=== PATIENT | female | born 1980 ===

== ENCOUNTER 2020-08-23 15:45 | Inpatient (IN) | payer BC ==
[~2020-08-23 15:45] MED LIST: Dexamethasone 4 MG Tab PO SCH
--- NOTE | 2020-08-23 15:52 | EDM.PDOC ---
<Malick Deluca - Last Filed: 08/23/20 20:17> ED HPI GENERAL MEDICAL PROBLEM - General Chief Complaint: Respiratory Problem Stated Complaint: CLINIC ARRIVAL Time Seen by Provider: 08/23/20 15:47 - Related Data Allergies Allergy/AdvReac Type Severity Reaction Status Date / Time No Known Allergies Allergy Verified 08/23/20 18:30 Home Meds: Home Meds Levothyroxine Sodium [Synthroid] 200 mcg PO DAILY 08/23/20 [History] Sertraline [Zoloft] 150 mg PO DAILY 08/23/20 [History] traZODone HCl [Trazodone HCl] 50 mg PO BEDTIME 08/23/20 [History] Course - Vital Signs Text/Narrative:: Repeat troponin was 0.058. The hospitalist agreed to admit the patient and wanted a CT angio in route to the floor. Departure - Departure Time of Disposition: 20:15 Disposition: Admitted As Inpatient 65 Condition: Good Clinical Impression: COVID-19, Bilateral pneumonia, Hypoxia, Elevated troponin - Discharge Information <Fabio Curran - Last Filed: 08/24/20 07:17> ED HPI GENERAL MEDICAL PROBLEM - General Source of Information: Reports: Patient, Old Records History Limitations: Reports: No Limitations - History of Present Illness INITIAL COMMENTS - FREE TEXT/NARRATIVE: This is a 40-year-old female with a past medical history of hypothyroidism and depression presenting with shortness of breath. She was diagnosed with Covid on August 13, 2020. She states that symptoms started the same day, including headache, cough, and nasal congestion. Today she felt more short of breath than before so she went to the clinic to be evaluated where she was noted to be hypoxic. She was then directed to the emergency department. She denies any chest discomfort, hemoptysis, lower extremity swelling, sore throat, difficulty swallowing or handling secretions. Denies recent fever. Does report some nonbloody emesis yesterday. No diarrhea. ROS: A 10-point review of systems was negative, except as noted in the HPI (or in the ROS section of this note). Past medical history: Reviewed, no additional pertinent history. Surgical history: Reviewed in system, no additional pertinent history. Social history: Reviewed in system, no additional pertinent history. Family history: Reviewed in system, no additional pertinent history. PHYSICAL EXAM Vital signs reviewed. Nursing notes reviewed. Constitutional: Awake, alert, non-distressed. Head: Normocephalic, atraumatic. Eyes: EOMI, conjunctiva normal, no discharge, no scleral icterus. Ears, Nose, Throat: External ears and nose normal, moist oral mucosa. Cardiovascular: Tachycardic, 2+ radial pulses bilaterally, capillary refill less than 2 seconds. No lower extremity edema. Pulmonary: normal work of breathing, no accessory muscle use. Abdomen/GI: Soft, nontender, nondistended, no guarding or rigidity, no masses. Musculoskeletal: No deformities. Integumentary: Appropriate color for ethnicity, warm, dry, no pallor or jaundice, no rash. Neurologic: Alert, answering questions appropriately, normal speech, no facial droop, moving all extremities well. Psychiatric: Appropriate mood and affect, normal thought process. This patient was seen and evaluated during the 2019 SARS-CoV-2 novel coronavirus pandemic period. Community viral transmission is ongoing at time of this encounter and the emergency department is operating under pandemic response procedures. ED ROS GENERAL - Review of Systems Review Of Systems: See Below ED EXAM, GENERAL - Physical Exam Exam: See Below #1 Interpretation EKG Interpretation Comments: 12-Lead ECG Interpretation Acquired: 4:07 PM Rhythm: Sinus tachycardia Rate: 107 bpm [place]: Normal Intervals: Normal Ectopy: None RV Strain: No obvious RV strain pattern. ST Segments/T-Waves: T wave inversions in lead III, otherwise no notable changes Acute Ischemic Changes: None apparent Interpretation: No STEMI Course - Vital Signs Text/Narrative:: Differential diagnosis includes but is not limited to: COVID-19 infection, bacterial infection, sepsis, less likely pneumothorax, less likely acute coronary syndrome or myocarditis, anemia, volume depletion, electrolyte disturbance, arrhythmia, etc. 1625: Noted to be hypoxic to 82% in triage. Placed on nasal cannula oxygen at 4 L/min with improvement of pulse oximetry readings. Twelve-lead EKG is nonischemic, sinus tachycardia on the monitor. IV access established and labs sent. Chest x-ray pending. CBC shows normal cell lines. INR and lactate are normal. Metabolic panel shows mild hypokalemia. Normal renal function. Troponin is elevated at 0.059. Patient has no chest pain at the moment. Mild LFT elevations, AST 117, ALT 145, alk phos 174, total bilirubin 1.3. Chest x-ray shows extensive bilateral alveolar consolidation consistent with COVID-19 infection. Given supplemental oxygen, 3 and 24 mg of aspirin, p.o. dexamethasone, IV magnesium sulfate, p.o. potassium, IV remdesivir. Obtained verbal consent for remdesivir given the EUA. Blood culture sent x2. Patient will need to be admitted the hospital for new onset acute hypoxemic respiratory failure with COVID-19 infection and elevated troponin. I have low suspicion for acute coronary syndrome at this point despite the very slight troponin elevation. She has no chest discomfort and her twelve-lead EKG looks nonischemic. Her troponin could be elevated due to hypoxia or her viral infection. She strongly desires to be hospitalized at our facility here in [place] does not want to transfer to another hospital, if possible. We will plan to repeat her troponin at 3 hours to ensure that it is not getting any worse. In the meantime we will give her therapeutic enoxaparin. I spoke with the hospitalist Dr. Aggarwal who agrees with this plan to reevaluate the troponin and agrees with admissio here if it is not rising. Patient remained in the emergency department to the end of my shift. Signed out to my colleague Dr. Deluca. Please refer to his note for the disposition. Last Recorded V/S: Last Vital Signs Temp 35.6 C L 08/24/20 04:00 Pulse 74 08/24/20 04:00 Resp 20 08/24/20 04:00 BP 128/93 H 08/24/20 04:00 Pulse Ox 91 L 08/24/20 04:00 - Orders/Labs/Meds Orders: Active Orders 24 hr Category Date Time Status Overnight Pulse Oximetry [RC] Click to Edit Care 08/23/20 15:54 Active Oxygen Therapy, ED [RC] ASDIRECTED Care 08/23/20 16:07 Active CULTURE BLOOD [BC] Stat Lab 08/23/20 16:20 Received CULTURE BLOOD [BC] Stat Lab 08/23/20 16:25 Received Sodium Chloride 0.9% [Saline Flush] Med 08/23/20 15:54 Active 10 ml FLUSH ASDIRECTED PRN Sodium Chloride 0.9% [Saline Flush] Med 08/23/20 15:54 Active 2.5 ml FLUSH ASDIRECTED PRN Blood Culture x2 Reflex Set [OM.PC] Stat Ot 08/23/20 15:54 Ordered Pulse Oximetry Continuous Monitoring [OM.PC] Routine Ot 08/23/20 15:54 Ordered Saline Lock Insert [OM.PC] Stat Ot 08/23/20 15:54 Ordered Medication Orders Albuterol/Ipratropium (Combivent Respimat) 0 gm INH Q4HR BETTY Last Admin: 08/24/20 05:46 Dose: 1 inhalation Documented by: Admin: 08/24/20 02:32 Dose: Not Given Documented by: ELIZABETH Dexamethasone (Dexamethasone) 6 mg PO DAILY [facility] Enoxaparin Sodium (Lovenox) 40 mg SUBCUT Q12H [facility] Guaifenesin/Dextromethorphan (Robitussin Dm) 10 ml PO Q4H PRN PRN Reason: Cough Sodium Chloride (Saline Flush) 10 ml FLUSH ASDIRECTED PRN PRN Reason: Keep Vein Open Last Admin: 08/23/20 16:24 Dose: 10 ml Documented by: MAXI Sodium Chloride (Saline Flush) 2.5 ml FLUSH ASDIRECTED PRN PRN Reason: Keep Vein Open Last Admin: 08/23/20 16:24 Dose: 2.5 ml Documented by: MAXI Labs: Laboratory Tests 08/23/20 08/23/20 08/23/20 Range/Units :20 16:20 16:20 WBC 6.00 (4.0-11.0) K/uL RBC 4.87 (4.30-5.90) M/uL Hgb 14.8 (12.0-16.0) g/dL Hct 44.0 (36.0-46.0) % MCV 90.3 (80.0-98.0) fL MCH 30.4 (27.0-32.0) pg MCHC 33.6 (31.0-37.0) g/dL RDW Std Deviation 42.0 (28.0-62.0) fl RDW Coeff of Michelle 13 (11.0-15.0) % Plt Count 202 (150-400) K/uL MPV 9.30 (7.40-12.00) fL Neut % (Auto) 78.8 (48.0-80.0) % Lymph % (Auto) 14.2 L (16.0-40.0) % [place] % (Auto) 6.8 (0.0-15.0) % Eos % (Auto) 0.0 (0.0-7.0) % Baso % (Auto) 0.2 (0.0-1.5) % Neut # (Auto) 4.7 (1.4-5.7) K/uL Lymph # (Auto) 0.9 (0.6-2.4) K/uL [place] # (Auto) 0.4 (0.0-0.8) K/uL Eos # (Auto) 0.0 (0.0-0.7) K/uL Baso # (Auto) 0.0 (0.0-0.1) K/uL Nucleated RBC % 0.0 /100WBC Nucleated RBCs # 0 K/uL INR 0.90 Lactate 0.8 (0.20-2.00) mmol/L Sodium (136-145) mmol/L Potassium (3.5-5.1) mmol/L Chloride (98-107) mmol/L Carbon Dioxide (21.0-32.0) mmol/L BUN (7.0-18.0) mg/dL Creatinine (0.6-1.0) mg/dL Est Cr Clr Drug Dosing mL/min Estimated GFR (MDRD) ml/min Glucose (74-106) mg/dL Calcium (8.5-10.1) mg/dL Total Bilirubin (0.2-1.0) mg/dL AST (15-37) IU/L ALT (14-63) IU/L Alkaline Phosphatase (46-116) U/L Troponin I (0.000-0.056) ng/mL Total Protein (6.4-8.2) g/dL Albumin (3.4-5.0) g/dL Globulin (2.6-4.0) g/dL Albumin/Globulin Ratio (0.9-1.6) 08/23/20 08/23/20 Range/Units 16:20 19:25 WBC (4.0-11.0) K/uL RBC (4.30-5.90) M/uL Hgb (12.0-16.0) g/dL Hct (36.0-46.0) % MCV (80.0-98.0) fL MCH (27.0-32.0) pg MCHC (31.0-37.0) g/dL RDW Std Deviation (28.0-62.0) fl RDW Coeff of Michelle (11.0-15.0) % Plt Count (150-400) K/uL MPV (7.40-12.00) fL Neut % (Auto) (48.0-80.0) % Lymph % (Auto) (16.0-40.0) % [place] % (Auto) (0.0-15.0) % Eos % (Auto) (0.0-7.0) % Baso % (Auto) (0.0-1.5) % Neut # (Auto) (1.4-5.7) K/uL Lymph # (Auto) (0.6-2.4) K/uL [place] # (Auto) (0.0-0.8) K/uL Eos # (Auto) (0.0-0.7) K/uL Baso # (Auto) (0.0-0.1) K/uL Nucleated RBC % /100WBC Nucleated RBCs # K/uL INR Lactate (0.20-2.00) mmol/L Sodium 138 (136-145) mmol/L Potassium 3.3 L (3.5-5.1) mmol/L Chloride 99 (98-107) mmol/L Carbon Dioxide 30.6 (21.0-32.0) mmol/L BUN 6 L (7.0-18.0) mg/dL Creatinine 0.7 (0.6-1.0) mg/dL Est Cr Clr Drug Dosing 99.01 mL/min Estimated GFR (MDRD) > 60.0 ml/min Glucose 110 H (74-106) mg/dL Calcium 8.8 (8.5-10.1) mg/dL Total Bilirubin 1.3 H (0.2-1.0) mg/dL AST 117 H (15-37) IU/L ALT 145 H (14-63) IU/L Alkaline Phosphatase 174 H (46-116) U/L Troponin I 0.059 H* 0.058 H* (0.000-0.056) ng/mL Total Protein 7.6 (6.4-8.2) g/dL Albumin 2.8 L (3.4-5.0) g/dL Globulin 4.8 H (2.6-4.0) g/dL Albumin/Globulin Ratio 0.6 L (0.9-1.6) Meds: Medications Generic Name Dose Route Start Last Admin Trade Name Freq PRN Reason Stop Dose Admin Albuterol/Ipratropium 0 gm 08/24/20 00:00 08/24/20 05:46 Combivent Respimat INH 1 inhalation Q4HR BETTY Administration Dexamethasone 6 mg 08/24/20 09:00 Dexamethasone PO DAILY BETTY Enoxaparin Sodium 40 mg 08/24/20 09:00 Lovenox SUBCUT Q12H BETTY Guaifenesin/Dextromethorphan 10 ml 08/23/20 22:15 Robitussin Dm PO Q4H PRN Cough Sodium Chloride 10 ml 08/23/20 15:54 08/23/20 16:24 Saline Flush FLUSH 10 ml ASDIRECTED PRN Administration Keep Vein Open Sodium Chloride 2.5 ml 08/23/20 15:54 08/23/20 16:24 Saline Flush FLUSH 2.5 ml ASDIRECTED PRN Administration Keep Vein Open Discontinued Medications Generic Name Dose Route Start Last Admin Trade Name Freq PRN Reason Stop Dose Admin Acetaminophen 650 mg 08/23/20 20:16 Tylenol PO Q4H PRN Pain (Mild 1-3)/fever Albuterol/Ipratropium 0 gm 08/23/20 22:15 Combivent Respimat INH Q4H BETTY Aspirin 324 mg 08/23/20 17:25 08/23/20 17:51 Aspirin PO 08/23/20 17:26 324 mg ONETIME ONE Administration Dexamethasone 6 mg 08/23/20 16:05 08/23/20 16:24 Dexamethasone PO 08/23/20 16:06 6 mg ONETIME ONE Administration Dexamethasone 6 mg 08/23/20 09:00 08/23/20 21:18 Dexamethasone PO Not Given DAILY BETTY Enoxaparin Sodium 115 mg 08/23/20 17:43 08/23/20 17:53 Lovenox 1 mg/kg (115 mg) 08/23/20 17:44 115 mg SUBCUT Administration ONETIME ONE Enoxaparin Sodium 40 mg 08/23/20 20:30 08/23/20 21:18 Lovenox SUBCUT Not Given Q12H BETTY Magnesium Sulfate 2 gm/ Premix 50 mls @ 50 mls/hr 08/23/20 17:27 08/23/20 17:54 IV 08/23/20 18:26 50 mls/hr ONETIME ONE Administration Remdesivir 200 mg/ Sodium 250 mls @ 250 mls/hr 08/23/20 17:27 08/23/20 18:47 Chloride IV 08/23/20 17:28 250 mls/hr ONETIME ONE Administration Remdesivir 200 mg/ Sodium 250 mls @ 250 mls/hr 08/23/20 20:17 08/23/20 21:18 Chloride IV 08/23/20 20:18 Not Given ONETIME ONE Iopamidol 100 ml 08/23/20 20:46 08/23/20 20:49 Isovue Multipack-370 (76%) IVPUSH 08/23/20 20:47 100 ml ONETIME STA Administration Potassium Chloride 60 meq 08/23/20 17:27 08/23/20 17:51 Potassium Chloride PO 08/23/20 17:28 60 meq ONETIME ONE Administration Potassium Chloride 40 meq 08/23/20 20:49 Potassium Chloride PO 08/23/20 20:50 ONETIME ONE - My Orders Last 24 Hours: My Active Orders 08/23/20 15:54 Overnight Pulse Oximetry [RC] Click to Edit Sodium Chloride 0.9% [Saline Flush] 10 ml FLUSH ASDIRECTED PRN Sodium Chloride 0.9% [Saline Flush] 2.5 ml FLUSH ASDIRECTED PRN Blood Culture x2 Reflex Set [OM.PC] Stat Pulse Oximetry Continuous Monitoring [OM.PC] Routine Saline Lock Insert [OM.PC] Stat 08/23/20 16:07 Oxygen Therapy, ED [RC] ASDIRECTED 08/23/20 16:20 CULTURE BLOOD [BC] Stat 08/23/20 16:25 CULTURE BLOOD [BC] Stat - Assessment/Plan Last 24 Hours: My Active Orders 08/23/20 15:54 Overnight Pulse Oximetry [RC] Click to Edit Sodium Chloride 0.9% [Saline Flush] 10 ml FLUSH ASDIRECTED PRN Sodium Chloride 0.9% [Saline Flush] 2.5 ml FLUSH ASDIRECTED PRN Blood Culture x2 Reflex Set [OM.PC] Stat Pulse Oximetry Continuous Monitoring [OM.PC] Routine Saline Lock Insert [OM.PC] Stat 08/23/20 16:07 Oxygen Therapy, ED [RC] ASDIRECTED 08/23/20 16:20 CULTURE BLOOD [BC] Stat 08/23/20 16:25 CULTURE BLOOD [BC] Stat
[2020-08-23] MEDS ORDERED: Sodium Chloride 0.9% 2.5 ML Syringe FLUSH PRN (15:54)
[2020-08-23] MEDS ORDERED: Sodium Chloride 0.9% 10 ML Syringe FLUSH PRN (15:54)
[2020-08-23] MEDS ORDERED: Dexamethasone 4 MG Tab PO ONE (16:05)
--- NOTE | 2020-08-23 16:37 | CR ---
INDICATION: Hypoxia; COVID-19 positive. Comparison: None. TECHNIQUE: Portable AP chest. FINDINGS: Normal size cardiac silhouette. Extensive patchy alveolar consolidation both lungs diagnostic of COVID-19 infection. No pneumothorax or pleural effusion. IMPRESSION: Extensive bilateral alveolar consolidation diagnostic of COVID-19 infection. Dictated by Vernon Rhodes MD @ Aug 23 2020 4:35PM Signed by Dr. Vernon Rhodes @ Aug 23 2020 4:37PM
[2020-08-23 17:09] LABS: BLOOD UREA NITROGEN,BUN 6 mg/dL (7.0-18.0); CARBON DIOXIDE,CO2 30.6 mmol/L (21.0-32.0); CHLORIDE,CL 99 mmol/L (98-107); GLUCOSE RANDOM 110 mg/dL (74-106); POTASSIUM,K 3.3 mmol/L (3.5-5.1); SODIUM,NA 138 mmol/L (136-145)
[2020-08-23] MEDS ORDERED: Aspirin 81 MG Tab.Chew PO ONE (17:25)
[2020-08-23] MEDS ORDERED: REMDESIVIR 200 MG in Sodium Chloride 0.9% 250 ML IV ONE ×2 (17:27→20:17)
[2020-08-23] MEDS ORDERED: Magnesium Sulfate/Water 2 GM in Premix Bag 1 BAG IV ONE (17:27)
[2020-08-23] MEDS ORDERED: Potassium Chloride 10% 20 MEQ/15 ML Soln 30 ML UD Cup PO ONE ×2 (17:27→20:49)
[2020-08-23] MEDS ORDERED: Enoxaparin 100 MG/1 ML Syringe SUBCUT ONE (17:43)
[2020-08-23] MEDS ORDERED: Acetaminophen 325 MG Tab PO PRN (20:16)
[2020-08-23] MEDS ORDERED: Enoxaparin 40 MG/0.4 ML Syringe SUBCUT SCH (20:30)
--- NOTE | 2020-08-23 20:41 | PCM.HP.2 ---
H&P History of Present Illness - General Date of Service: 08/23/20 Admit Problem/Dx: Admission Diagnosis/Problem Admission Diagnosis/Problem Bilateral pneumonia - History of Present Illness Initial Comments - Free Text/Narative: Patient is a 40-year-old female with a past medical history of hypothyroidism and depression who presents to the ER with complaints of worsening shortness of breath. According to the patient she was diagnosed with Eugenio on August 13, states that she went to get tested because she was having an excruciating headache,nasal congestion and fevers. She did not have any shortness of breath at that point of time. according to the patient today she felt short of breath and went to the clinic to get evaluated where she was found to be hypoxic. Patient was sent to the ED for further evaluation. She denies any chest discomfort, hemoptysis, lower extremity swelling, sore throat, difficulty swallowing or handling secretions. Denies recent fever. Does report some nonbloody emesis yesterday. No diarrhea. states that she has had no appetite for last few days. patient was found to be hypoxic saturating 82% in try arch. Patient was put on nasal cannula, 4 years per minute which improved her pulse ox to 93-94%. 12-lead EKG was done which was nonischemic, sinus tachycardia. patie nt's troponin was slightly elevated which was trended second time, improved. There was very low especially for ACS, troponin D was likely secondary to demand supply mismatch. CT angiogram of the chest was done to rule out PE. CBC shows normal cell lines. INR and lactate are normal. Metabolic panel shows mild hypokalemia. Normal renal function. Troponin is elevated at 0.059. Patient has no chest pain at the moment. Mild LFT elevations, AST 117, ALT 145, alk phos 174, total bilirubin 1.3. Chest x-ray shows extensive bilateral alveolar consolidation consistent with COVID-19 infection. Patient received aspirin, p.o. dexamethasone, IV magnesium sulfate, p.o. potassium, IV remdesivir. Blood culture sent x2. Patient was admitted the hospital for new onset acute hypoxemic respiratory failure with COVID-19 infection. - Related Data Allergies/Adverse Reactions: Allergies Allergy/AdvReac Type Severity Reaction Status Date / Time No Known Allergies Allergy Verified 08/23/20 18:30 Home Medications: Home Meds Levothyroxine Sodium [Synthroid] 200 mcg PO DAILY 08/23/20 [History] Sertraline [Zoloft] 150 mg PO DAILY 08/23/20 [History] traZODone HCl [Trazodone HCl] 50 mg PO BEDTIME 08/23/20 [History] Past Medical History - Past Health History Medical/Surgical History: Denies Medical/Surgical History Social & Family History - Tobacco Use Tobacco Use Status *Q: Never Tobacco User - Recreational Drug Use Recreational Drug Use: No H&P Review of Systems - Review of Systems: Review Of Systems: See Below General: Reports: Weakness, Fatigue. Denies: Fever, Chills, Malaise HEENT: Denies: Contact Lenses Pulmonary: Reports: Shortness of Breath, Cough. Denies: Wheezing, Pleuritic Chest Pain Gastrointestinal: Reports: Decreased Appetite, Nausea, Vomiting. Denies: Abdomi nal Pain, Anorexia, Black Stool, Bloody Stool, Constipation, Diarrhea Genitourinary: Denies: Dysuria, Frequency, Burning Musculoskeletal: Denies: Neck Pain, Shoulder Pain, Arm Pain, Back Pain Skin: Denies: Cyanosis, Jaundice, Mottled Psychiatric: Denies: Confusion, Depression, Mood Lability, Anxiety Exam - Exam Exam: See Below - Vital Signs Vital Signs: Last Vital Signs Temp 37.1 C 08/23/20 15:53 Pulse 98 08/23/20 19:05 Resp 20 08/23/20 19:05 BP 135/76 08/23/20 19:05 Pulse Ox 91 L 08/23/20 19:05 Weight: 114.759 kg - Exam Quality Assessment: Supplemental Oxygen General: Alert, Oriented, Cooperative Neck: Supple, Trachea Midline Lungs: Normal Respiratory Effort, Decreased Breath Sounds, Crackles, Rales Cardiovascular: Regular Rate, Regular Rhythm, Normal S1, Normal S2 - Patient Data Lab Results Last 24 hrs: Laboratory Results - last 24 hr 08/23/20 08/23/20 08/23/20 Range/Units 16:20 16:20 16:20 WBC 6.00 (4.0-11.0) K/uL RBC 4.87 (4.30-5.90) M/uL Hgb 14.8 (12.0-16.0) g/dL Hct 44.0 (36.0-46.0) % MCV 90.3 (80.0-98.0) fL MCH 30.4 (27.0-32.0) pg MCHC 33.6 (31.0-37.0) g/dL RDW Std Deviation 42.0 (28.0-62.0) fl RDW Coeff of Michelle 13 (11.0-15.0) % Plt Count 202 (150-400) K/uL MPV 9.30 (7.40-12.00) fL Neut % (Auto) 78.8 (48.0-80.0) % Lymph % (Auto) 14.2 L (16.0-40.0) % [place]ow % (Auto) 6.8 (0.0-15.0) % Eos % (Auto) 0.0 (0.0-7.0) % Baso % (Auto) 0.2 (0.0-1.5) % Neut # (Auto) 4.7 (1.4-5.7) K/uL Lymph # (Auto) 0.9 (0.6-2.4) K/uL [place] # (Auto) 0.4 (0.0-0.8) K/uL Eos # (Auto) 0.0 (0.0-0.7) K/uL Baso # (Auto) 0.0 (0.0-0.1) K/uL Nucleated RBC % 0.0 /100WBC Nucleated RBCs # 0 K/uL INR 0.90 Lactate 0.8 (0.20-2.00) mmol/L Sodium (136-145) mmol/L Potassium (3.5-5.1) mmol/L Chloride (98-107) mmol/L Carbon Dioxide (21.0-32.0) mmol/L BUN (7.0-18.0) mg/dL Creatinine (0.6-1.0) mg/dL Est Cr Clr Drug Dosing mL/min Estimated GFR (MDRD) ml/min Glucose (74-106) mg/dL Calcium (8.5-10.1) mg/dL Total Bilirubin (0.2-1.0) mg/dL AST (15-37) IU/L ALT (14-63) IU/L Alkaline Phosphatase (46-116) U/L Troponin I (0.000-0.056) ng/mL Total Protein (6.4-8.2) g/dL Albumin (3.4-5.0) g/dL Globulin (2.6-4.0) g/dL Albumin/Globulin Ratio (0.9-1.6) 08/23/20 08/23/20 Range/Units 16:20 19:25 WBC (4.0-11.0) K/uL RBC (4.30-5.90) M/uL Hgb (12.0-16.0) g/dL Hct (36.0-46.0) % MCV (80.0-98.0) fL MCH (27.0-32.0) pg MCHC (31.0-37.0) g/dL RDW Std Deviation (28.0-62.0) fl RDW Coeff of Michelle (11.0-15.0) % Plt Count (150-400) K/uL MPV (7.40-12.00) fL Neut % (Auto) (48.0-80.0) % Lymph % (Auto) (16.0-40.0) % [place] % (Auto) (0.0-15.0) % Eos % (Auto) (0.0-7.0) % Baso % (Auto) (0.0-1.5) % Neut # (Auto) (1.4-5.7) K/uL Lymph # (Auto) (0.6-2.4) K/uL [place]ow # (Auto) (0.0-0.8) K/uL Eos # (Auto) (0.0-0.7) K/uL Baso # (Auto) (0.0-0.1) K/uL Nucleated RBC % /100WBC Nucleated RBCs # K/uL INR Lactate (0.20-2.00) mmol/L Sodium 138 (136-145) mmol/L Potassium 3.3 L (3.5-5.1) mmol/L Chloride 99 (98-107) mmol/L Carbon Dioxide 30.6 (21.0-32.0) mmol/L BUN 6 L (7.0-18.0) mg/dL Creatinine 0.7 (0.6-1.0) mg/dL Est Cr Clr Drug Dosing 99.01 mL/min Estimated GFR (MDRD) > 60.0 ml/min Glucose 110 H (74-106) mg/dL Calcium 8.8 (8.5-10.1) mg/dL Total Bilirubin 1.3 H (0.2-1.0) mg/dL AST 117 H (15-37) IU/L ALT 145 H (14-63) IU/L Alkaline Phosphatase 174 H (46-116) U/L Troponin I 0.059 H* 0.058 H* (0.000-0.056) ng/mL Total Protein 7.6 (6.4-8.2) g/dL Albumin 2.8 L (3.4-5.0) g/dL Globulin 4.8 H (2.6-4.0) g/dL Albumin/Globulin Ratio 0.6 L (0.9-1.6) Result Diagrams: 08/23/20 16:20 08/23/20 16:20 Sepsis Event Note - Evaluation Sepsis Screening Result: No Definite Risk - Focused Exam Vital Signs: Vital Signs Temp Pulse Resp BP Pulse Ox Pulse Ox 08/23/20 19:05 98 20 135/76 91 L 08/23/20 16:36 91 L 08/23/20 16:30 103 H 131/81 92 L 08/23/20 16:07 90 L 08/23/20 15:53 37.1 C 92 17 130/70 92 L 08/23/20 15:52 107 H 130/79 92 L - Problem List (1) COVID-19 SNOMED Code(s): 988038479 ICD Code: U07.1 - COVID-19 Status: Acute Current Visit: Yes (2) Elevated troponin SNOMED Code(s): 052407680, 240585551, 349829832 ICD Code: R77.8 - OTHER SPECIFIED ABNORMALITIES OF PLASMA PROTEINS Status: Acute Current Visit: Yes (3) Hypoxia SNOMED Code(s): 372017844 ICD Code: R09.02 - HYPOXEMIA Status: Acute Current Visit: Yes (4) Hypothyroid SNOMED Code(s): 33403519 ICD Code: E03.9 - HYPOTHYROIDISM, UNSPECIFIED Status: Acute Current Visit: Yes Problem List Initiated/Reviewed/Updated: Yes Orders Last 24hrs: Active Orders 24 hr Category Date Time Status Admission Status [Patient Status] [ADT] Stat ADT 08/23/20 20:13 Active Ambulate [RC] ASDIRECTED Care 08/23/20 20:16 Ordered Antiembolic Devices [RC] PER UNIT ROUTINE Care 08/23/20 20:17 Ordered Cardiac Monitoring [RC] . DIRECTED Care 08/23/20 20:13 Active Cardiac Monitoring [RC] CONTINUOUS Care 08/23/20 15:54 Active Cardiac Monitoring [RC] CONTINUOUS Care 08/23/20 20:16 Ordered EKG Documentation Completion [RC] STAT Care 08/23/20 15:54 Active Overnight Pulse Oximetry [RC] Click to Edit Care 08/23/20 15:54 Active Oxygen Therapy [RC] PRN Care 08/23/20 20:16 Ordered Oxygen Therapy, ED [RC] ASDIRECTED Care 08/23/20 16:07 Active Pulse Oximetry [RC] PRN Care 08/23/20 20:16 Ordered VTE/DVT Education [RC] PER UNIT ROUTINE Care 08/23/20 20:16 Ordered Vital Signs [RC] Q4H Care 08/23/20 20:16 Ordered Ang Chest [CT] Stat Exams 08/23/20 20:12 Ordered CULTURE BLOOD [BC] Stat Lab 08/23/20 16:20 Received CULTURE BLOOD [BC] Stat Lab 08/23/20 16:25 Received Enoxaparin [Lovenox] Med 08/24/20 09:00 Ordered 40 mg SUBCUT Q12H Sodium Chloride 0.9% [Saline Flush] Med 08/23/20 15:54 Active 10 ml FLUSH ASDIRECTED PRN Sodium Chloride 0.9% [Saline Flush] Med 08/23/20 15:54 Active 2.5 ml FLUSH ASDIRECTED PRN dexAMETHasone Med 08/24/20 09:00 Ordered 6 mg PO DAILY Blood Culture x2 Reflex Set [OM.PC] Stat Oth 08/23/20 15:54 Ordered Pulse Oximetry Continuous Monitoring [OM.PC] Routine Oth 08/23/20 15:54 Ordered Saline Lock Insert [OM.PC] Stat Oth 08/23/20 15:54 Ordered Sequential Compression Device [OM.PC] Per Unit Routine Oth 08/23/20 20:16 Ordered Resuscitation Status Routine Resus Stat 08/23/20 20:16 Ordered Medication Orders Dexamethasone (Dexamethasone) 6 mg PO DAILY BETTY Enoxaparin Sodium (Lovenox) 40 mg SUBCUT Q12H BETTY Sodium Chloride (Saline Flush) 10 ml FLUSH ASDIRECTED PRN PRN Reason: Keep Vein Open Last Admin: 08/23/20 16:24 Dose: 10 ml Documented by: MAXI Sodium Chloride (Saline Flush) 2.5 ml FLUSH ASDIRECTED PRN PRN Reason: Keep Vein Open Last Admin: 08/23/20 16:24 Dose: 2.5 ml Documented by: MAXI Assessment/Plan Comment:: 40-year-old female admitted for Hypoxic respiratory failure secondary to COVID- 19 Admit to inpatient telemetry Patient already received a loading dose of remdesivir, liver enzymes are elevated so will continue based on her repeat liver enzymes in morning continue dexamethasone 6 mg daily Continue Lovenox immediate does Troponin is trending flat, no chest pain, nonischemic EKG Continue oxygenation via nasal cannula to maintain pulse ox more than 92% Encourage incentive spirometry and proning monitor and replete electrolytes as needed, hypokalemic, potassium has been repleted in ER Combivent every 4 hours Guaifenesin every 4 hours as needed for cough patient was diagnosed almost 10 days ago so is out of the window to have any substantial benefit from receiving convalescent plasma
[2020-08-23] MEDS ORDERED: Iopamidol 755 MG/ML 500 ML Multipack Bottle IVPUSH STA (20:46)
--- NOTE | 2020-08-23 21:05 | CT ---
Indication: Hypoxia, positive for kent virus 19 Technique: Volumetric multidetector CT images of the chest were obtained after the administration of IV contrast. 100 cc Isovue 370 low osmolar intravenous contrast Comparison: None available Findings: The thoracic inlet and thyroid gland are unremarkable. The thoracic aorta is nonaneurysmal. There is no central filling defect to suggest pulmonary embolism. There are enlarged, reactive mediastinal and hilar lymph nodes. There is moderate central bronchial thickening and minimal mucoid impaction in the lower lobe bronchi. Otherwise the trachea and bronchi are aerated. There are extensive interstitial and ground-glass opacities seen throughout the bilateral hemithoraces consistent with atypical viral infiltrates consistent with history of kent virus infection. There is no evidence of pulmonary mass or suspicious pulmonary nodule. The partially visualized upper abdominal viscera are within normal limits. The thoracic vertebral body heights remain intact alignment without significant degenerative change or acute osseous abnormality. Impression: No evidence of pulmonary embolus. Extensive interstitial and ground-glass opacity of the bilateral hemithoraces consistent with history of kent virus 19 infection. Please note that all CT scans at this facility use dose modulation, iterative reconstruction, and/or weight-based dosing when appropriate to reduce radiation dose to as low as reasonably achievable. Dictated by Yunior Milan MD @ Aug 23 2020 8:57PM Signed by Dr. Yunior Milan @ Aug 23 2020 9:03PM
[2020-08-23] MEDS ORDERED: guaiFENesin/Dextromethorphan 100-10 MG/5 ML Soln 10 ML Cup PO PRN (22:15)
[2020-08-23] MEDS ORDERED: Albuterol/Ipratropium 4 GM Inhalation Spray INH SCH (22:15)
[2020-08-24] MEDS: Albuterol/Ipratropium 4 GM Inhalation Spray INH SCH ×6 (02:32→21:28)
[2020-08-24 07:53] LABS: BLOOD UREA NITROGEN,BUN 9 mg/dL (7.0-18.0); CARBON DIOXIDE,CO2 28.2 mmol/L (21.0-32.0); CHLORIDE,CL 104 mmol/L (98-107); GLUCOSE RANDOM 120 mg/dL (74-106); POTASSIUM,K 3.7 mmol/L (3.5-5.1); SODIUM,NA 141 mmol/L (136-145)
--- NOTE | 2020-08-24 08:01 | PCM.PN ---
- General Info Date of Service: 08/24/20 Admission Dx/Problem (Free Text): Admission Diagnosis/Problem Admission Diagnosis/Problem Bilateral pneumonia Subjective Update: Reports feeling slightly better than last evening on admission. Denies any chest pain. Reports some shortness of breath especially with exertion. Reports her stomach but is not feeling more hungry. Reported some diarrhea. No fevers or chills. Continues to feel generalized fatigue and malaise. Functional Status: Reports: Pain Controlled, Tolerating Diet, Ambulating, Urinating - Review of Systems General: Reports: Weakness (Generalized), Fatigue, Malaise Pulmonary: Reports: Shortness of Breath, Cough. Denies: Wheezing Cardiovascular: Denies: Chest Pain Gastrointestinal: Reports: Diarrhea, Nausea. Denies: Abdominal Pain, Vomiting Genitourinary: Reports: No Symptoms. Denies: Dysuria, Frequency, Burning Musculoskeletal: Reports: No Symptoms Skin: Reports: No Symptoms Neurological: Reports: No Symptoms Psychiatric: Reports: No Symptoms - Patient Data Vitals - Most Recent: Last Vital Signs Temp 96.1 F L 08/24/20 04:00 Pulse 74 08/24/20 04:00 Resp 20 08/24/20 04:00 BP 128/93 H 08/24/20 04:00 Pulse Ox 91 L 08/24/20 04:00 Weight - Most Recent: 114.759 kg I&O - Last 24 Hours: Intake & Output 08/23/20 08/24/20 08/24/20 22:59 06:59 14:59 Intake Total 650 Output Total 250 Balance 400 Lab Results Last 24 Hours: Laboratory Results - last 24 hr 08/23/20 08/23/20 08/23/20 Range/Units 16:20 16:20 16:20 WBC 6.00 (4.0-11.0) K/uL RBC 4.87 (4.30-5.90) M/uL Hgb 14.8 (12.0-16.0) g/dL Hct 44.0 (36.0-46.0) % MCV 90.3 (80.0-98.0) fL MCH 30.4 (27.0-32.0) pg MCHC 33.6 (31.0-37.0) g/dL RDW Std Deviation 42.0 (28.0-62.0) fl RDW Coeff of Michelle 13 (11.0-15.0) % Plt Count 202 (150-400) K/uL MPV 9.30 (7.40-12.00) fL Neut % (Auto) 78.8 (48.0-80.0) % Lymph % (Auto) 14.2 L (16.0-40.0) % Desha % (Auto) 6.8 (0.0-15.0) % Eos % (Auto) 0.0 (0.0-7.0) % Baso % (Auto) 0.2 (0.0-1.5) % Neut # (Auto) 4.7 (1.4-5.7) K/uL Lymph # (Auto) 0.9 (0.6-2.4) K/uL Desha # (Auto) 0.4 (0.0-0.8) K/uL Eos # (Auto) 0.0 (0.0-0.7) K/uL Baso # (Auto) 0.0 (0.0-0.1) K/uL Nucleated RBC % 0.0 /100WBC Nucleated RBCs # 0 K/uL INR 0.90 Lactate 0.8 (0.20-2.00) mmol/L Sodium (136-145) mmol/L Potassium (3.5-5.1) mmol/L Chloride (98-107) mmol/L Carbon Dioxide (21.0-32.0) mmol/L BUN (7.0-18.0) mg/dL Creatinine (0.6-1.0) mg/dL Est Cr Clr Drug Dosing mL/min Estimated GFR (MDRD) ml/min Glucose (74-106) mg/dL Calcium (8.5-10.1) mg/dL Phosphorus (2.6-4.7) mg/dL Magnesium (1.8-2.4) mg/dL Total Bilirubin (0.2-1.0) mg/dL AST (15-37) IU/L ALT (14-63) IU/L Alkaline Phosphatase (46-116) U/L Troponin I (0.000-0.056) ng/mL Total Protein (6.4-8.2) g/dL Albumin (3.4-5.0) g/dL Globulin (2.6-4.0) g/dL Albumin/Globulin Ratio (0.9-1.6) Urine Color Urine Appearance Urine pH (5.0-8.0) Ur Specific [place] (1.001-1.035) Urine Protein (NEGATIVE) mg/dL Urine Glucose (UA) (NEGATIVE) mg/dL Urine Ketones (NEGATIVE) mg/dL Urine Occult Blood (NEGATIVE) Urine Nitrite (NEGATIVE) Urine Bilirubin (NEGATIVE) Urine Ictotest Urine Urobilinogen (<2.0) EU/dL Ur Leukocyte Esterase (NEGATIVE) Urine RBC (0-2/HPF) Urine WBC (0-5/HPF) Ur Epithelial Cells (NONE-FEW) Urine Bacteria (NEGATIVE) Urine Mucus (NONE-MOD) 08/23/20 08/23/20 08/24/20 Range/Units 16:20 19:25 03:50 WBC (4.0-11.0) K/uL RBC (4.30-5.90) M/uL Hgb (12.0-16.0) g/dL Hct (36.0-46.0) % MCV (80.0-98.0) fL MCH (27.0-32.0) pg MCHC (31.0-37.0) g/dL RDW Std Deviation (28.0-62.0) fl RDW Coeff of Michelle (11.0-15.0) % Plt Count (150-400) K/uL MPV (7.40-12.00) fL Neut % (Auto) (48.0-80.0) % Lymph % (Auto) (16.0-40.0) % Desha % (Auto) (0.0-15.0) % Eos % (Auto) (0.0-7.0) % Baso % (Auto) (0.0-1.5) % Neut # (Auto) (1.4-5.7) K/uL Lymph # (Auto) (0.6-2.4) K/uL Desha # (Auto) (0.0-0.8) K/uL Eos # (Auto) (0.0-0.7) K/uL Baso # (Auto) (0.0-0.1) K/uL Nucleated RBC % /100WBC Nucleated RBCs # K/uL INR Lactate (0.20-2.00) mmol/L Sodium 138 (136-145) mmol/L Potassium 3.3 L (3.5-5.1) mmol/L Chloride 99 (98-107) mmol/L Carbon Dioxide 30.6 (21.0-32.0) mmol/L BUN 6 L (7.0-18.0) mg/dL Creatinine 0.7 (0.6-1.0) mg/dL Est Cr Clr Drug Dosing 99.01 mL/min Estimated GFR (MDRD) > 60.0 ml/min Glucose 110 H (74-106) mg/dL Calcium 8.8 (8.5-10.1) mg/dL Phosphorus (2.6-4.7) mg/dL Magnesium (1.8-2.4) mg/dL Total Bilirubin 1.3 H (0.2-1.0) mg/dL AST 117 H (15-37) IU/L ALT 145 H (14-63) IU/L Alkaline Phosphatase 174 H (46-116) U/L Troponin I 0.059 H* 0.058 H* (0.000-0.056) ng/mL Total Protein 7.6 (6.4-8.2) g/dL Albumin 2.8 L (3.4-5.0) g/dL Globulin 4.8 H (2.6-4.0) g/dL Albumin/Globulin Ratio 0.6 L (0.9-1.6) Urine Color DARK YELLOW Urine Appearance CLEAR Urine pH 6.5 (5.0-8.0) Ur Specific [place] 1.015 (1.001-1.035) Urine Protein 30 H (NEGATIVE) mg/dL Urine Glucose (UA) NEGATIVE (NEGATIVE) mg/dL Urine Ketones NEGATIVE (NEGATIVE) mg/dL Urine Occult Blood LARGE H (NEGATIVE) Urine Nitrite NEGATIVE (NEGATIVE) Urine Bilirubin SMALL H (NEGATIVE) Urine Ictotest POSITIVE Urine Urobilinogen 4.0 H (<2.0) EU/dL Ur Leukocyte Esterase NEGATIVE (NEGATIVE) Urine RBC 0-2 (0-2/HPF) Urine WBC 0-1 (0-5/HPF) Ur Epithelial Cells OCCASIONAL (NONE-FEW) Urine Bacteria FEW (NEGATIVE) Urine Mucus LIGHT (NONE-MOD) 08/24/20 08/24/20 Range/Units 07:03 07:03 WBC 4.07 (4.0-11.0) K/uL RBC 4.58 (4.30-5.90) M/uL Hgb 14.0 (12.0-16.0) g/dL Hct 42.2 (36.0-46.0) % MCV 92.1 (80.0-98.0) fL MCH 30.6 (27.0-32.0) pg MCHC 33.2 (31.0-37.0) g/dL RDW Std Deviation 43.1 (28.0-62.0) fl RDW Coeff of Michelle 13 (11.0-15.0) % Plt Count 217 (150-400) K/uL MPV 9.30 (7.40-12.00) fL Neut % (Auto) 71.6 (48.0-80.0) % Lymph % (Auto) 19.4 (16.0-40.0) % Desha % (Auto) 8.8 (0.0-15.0) % Eos % (Auto) 0.0 (0.0-7.0) % Baso % (Auto) 0.2 (0.0-1.5) % Neut # (Auto) 2.9 (1.4-5.7) K/uL Lymph # (Auto) 0.8 (0.6-2.4) K/uL Desha # (Auto) 0.4 (0.0-0.8) K/uL Eos # (Auto) 0.0 (0.0-0.7) K/uL Baso # (Auto) 0.0 (0.0-0.1) K/uL Nucleated RBC % 0.0 /100WBC Nucleated RBCs # 0 K/uL INR Lactate (0.20-2.00) mmol/L Sodium 141 (136-145) mmol/L Potassium 3.7 (3.5-5.1) mmol/L Chloride 104 (98-107) mmol/L Carbon Dioxide 28.2 (21.0-32.0) mmol/L BUN 9 (7.0-18.0) mg/dL Creatinine 0.6 (0.6-1.0) mg/dL Est Cr Clr Drug Dosing 106.55 mL/min Estimated GFR (MDRD) > 60.0 ml/min Glucose 120 H (74-106) mg/dL Calcium 8.6 (8.5-10.1) mg/dL Phosphorus 3.1 (2.6-4.7) mg/dL Magnesium 2.5 H (1.8-2.4) mg/dL Total Bilirubin 0.8 (0.2-1.0) mg/dL AST 96 H (15-37) IU/L ALT 133 H (14-63) IU/L Alkaline Phosphatase 160 H (46-116) U/L Troponin I (0.000-0.056) ng/mL Total Protein 7.2 (6.4-8.2) g/dL Albumin 2.5 L (3.4-5.0) g/dL Globulin 4.7 H (2.6-4.0) g/dL Albumin/Globulin Ratio 0.5 L (0.9-1.6) Urine Color Urine Appearance Urine pH (5.0-8.0) Ur Specific [place] (1.001-1.035) Urine Protein (NEGATIVE) mg/dL Urine Glucose (UA) (NEGATIVE) mg/dL Urine Ketones (NEGATIVE) mg/dL Urine Occult Blood (NEGATIVE) Urine Nitrite (NEGATIVE) Urine Bilirubin (NEGATIVE) Urine Ictotest Urine Urobilinogen (<2.0) EU/dL Ur Leukocyte Esterase (NEGATIVE) Urine RBC (0-2/HPF) Urine WBC (0-5/HPF) Ur Epithelial Cells (NONE-FEW) Urine Bacteria (NEGATIVE) Urine Mucus (NONE-MOD) Med Orders - Current: Current Medications Albuterol/Ipratropium (Combivent Respimat) 0 gm INH Q4HR [facility] Last Admin: 08/24/20 05:46 Dose: 1 inhalation Documented by: Dexamethasone (Dexamethasone) 6 mg PO DAILY [facility] Enoxaparin Sodium (Lovenox) 40 mg SUBCUT Q12H [facility] Guaifenesin/Dextromethorphan (Robitussin Dm) 10 ml PO Q4H PRN PRN Reason: Cough Remdesivir 100 mg/ Sodium (Chloride) 100 mls @ 100 mls/hr IV Q24H [facility] Stop: 08/27/20 17:59 Non-Formulary Medication (Levothyroxine Sodium) 200 mcg PO DAILY [facility] Sertraline HCl (Zoloft) 150 mg PO DAILY [facility] Sodium Chloride (Saline Flush) 10 ml FLUSH ASDIRECTED PRN PRN Reason: Keep Vein Open Last Admin: 08/23/20 16:24 Dose: 10 ml Documented by: Sodium Chloride (Saline Flush) 2.5 ml FLUSH ASDIRECTED PRN PRN Reason: Keep Vein Open Last Admin: 08/23/20 16:24 Dose: 2.5 ml Documented by: Trazodone HCl (Trazodone) 50 mg PO BEDTIME BETTY Discontinued Medications Acetaminophen (Tylenol) 650 mg PO Q4H PRN PRN Reason: Pain (Mild 1-3)/fever Albuterol/Ipratropium (Combivent Respimat) 0 gm INH Q4H [facility] Aspirin (Aspirin) 324 mg PO ONETIME ONE Stop: 08/23/20 17:26 Last Admin: 08/23/20 17:51 Dose: 324 mg Documented by: Dexamethasone (Dexamethasone) 6 mg PO ONETIME ONE Stop: 08/23/20 16:06 Last Admin: 08/23/20 16:24 Dose: 6 mg Documented by: Dexamethasone (Dexamethasone) 6 mg PO DAILY [facility] Last Admin: 08/23/20 21:18 Dose: Not Given Documented by: Enoxaparin Sodium (Lovenox) 115 mg 1 mg/kg (115 mg) SUBCUT ONETIME ONE Stop: 08/23/20 17:44 Last Admin: 08/23/20 17:53 Dose: 115 mg Documented by: Enoxaparin Sodium (Lovenox) 40 mg SUBCUT Q12H [facility] Last Admin: 08/23/20 21:18 Dose: Not Given Documented by: Magnesium Sulfate 2 gm/ Premix 50 mls @ 50 mls/hr IV ONETIME ONE Stop: 08/23/20 18:26 Last Admin: 08/23/20 17:54 Dose: 50 mls/hr Documented by: Remdesivir 200 mg/ Sodium (Chloride) 250 mls @ 250 mls/hr IV ONETIME ONE Stop: 08/23/20 17:28 Last Admin: 08/23/20 18:47 Dose: 250 mls/hr Documented by: Remdesivir 200 mg/ Sodium (Chloride) 250 mls @ 250 mls/hr IV ONETIME ONE Stop: 08/23/20 20:18 Last Admin: 08/23/20 21:18 Dose: Not Given Documented by: Iopamidol (Isovue Multipack-370 (76%)) 100 ml IVPUSH ONETIME STA Stop: 08/23/20 20:47 Last Admin: 08/23/20 20:49 Dose: 100 ml Documented by: Potassium Chloride (Potassium Chloride) 60 meq PO ONETIME ONE Stop: 08/23/20 17:28 Last Admin: 08/23/20 17:51 Dose: 60 meq Documented by: Potassium Chloride (Potassium Chloride) 40 meq PO ONETIME ONE Stop: 08/23/20 20:50 - Exam Quality Assessment: Supplemental Oxygen, DVT Prophylaxis General: Alert, Oriented, Cooperative Lungs: Decreased Breath Sounds (Throughout lung august). No: Normal Respiratory Effort (Dyspnea) Cardiovascular: Regular Rate, Regular Rhythm GI/Abdominal Exam: Normal Bowel Sounds, Soft, Non-Tender Back Exam: Normal Inspection, Full Range of Motion Extremities: Normal Inspection, Normal Range of Motion, Non-Tender, No Pedal Edema Neurological: No New Focal Deficit Psy/Mental Status: Alert, Normal Affect, Normal Mood Sepsis Event Note - Evaluation Sepsis Screening Result: No Definite Risk - Focused Exam Vital Signs: Vital Signs Temp Pulse Resp BP Pulse Ox Pulse Ox 08/24/20 04:00 96.1 F L 74 20 128/93 H 91 L 08/23/20 23:33 20 94 L 08/23/20 21:52 94 L 94 L 08/23/20 21:38 96.5 F L 95 20 117/76 94 L 08/23/20 20:53 96.5 F L 92 20 124/63 93 L - Problem List & Annotations (1) Acute on chronic respiratory failure with hypoxia SNOMED Code(s): 70158961, 336889976 Code(s): J96.21 - ACUTE AND CHRONIC RESPIRATORY FAILURE WITH HYPOXIA Status: Acute Current Visit: Yes (2) Bilateral pneumonia SNOMED Code(s): 244284368 Code(s): J18.9 - PNEUMONIA, UNSPECIFIED ORGANISM Status: Acute Current Visit: Yes (3) COVID-19 SNOMED Code(s): 214789681 Code(s): U07.1 - COVID-19 Status: Acute Current Visit: Yes (4) Elevated troponin SNOMED Code(s): 327618167, 991793290, 035938759 Code(s): R77.8 - OTHER SPECIFIED ABNORMALITIES OF PLASMA PROTEINS Status: Acute Current Visit: Yes - Problem List Review Problem List Initiated/Reviewed/Updated: Yes - My Orders Last 24 Hours: My Active Orders 08/24/20 09:00 Levothyroxine Sodium 200 mcg PO DAILY Sertraline [Zoloft] 150 mg PO DAILY 08/24/20 17:00 Remdesivir (Eua) [Remdesivir (EUA)] 100 mg Sodium Chloride 0.9% [Normal Saline] 100 ml IV Q24H 08/24/20 21:00 traZODone 50 mg PO BEDTIME - Plan Plan:: 40-year-old female admitted for Hypoxic respiratory failure secondary to COVID- 19 1. Acute hypoxic respiratory failure and COVID-19 pneumonia -Continue oxygen therapy to keep sats greater than 92% wean as possible. -Currently needing 4 to 6 L high flow nasal cannula -Continue remdesivir 100 mg IV daily x4 more doses total of 5-day course. -Transaminitis noted but has improved overnight continue to monitor daily with remdesivir administration - continue dexamethasone 6 mg daily - Continue Lovenox augmented dosing 40 twice daily - Encourage incentive spirometry and proning - Combivent every 4 hours - Guaifenesin every 4 hours as needed for cough -Feels some sinus congestion with high levels of nasal cannula therapy. We will add [place] nasally as needed 2. Transaminitis -Improving today right upper quadrant ultrasound obtained and is negative. VTE prophylaxis: Lovenox twice daily CODE STATUS: Full code Dispo: 2 to 3 days pending improvement
--- NOTE | 2020-08-24 08:54 | US ---
INDICATION: Transaminitis. TECHNIQUE: Ultrasound abdomen limited. Sonographic images of the right upper quadrant were obtained using lundberg-scale and color Doppler images. COMPARISON: None FINDINGS: Liver: Normal in size and echotexture. No masses. No intrahepatic biliary dilatation. Gallbladder: Status post cholecystectomy. Common bile duct: 9 mm. Pancreas: Normal. Right kidney: Normal in size. Normal echotexture and cortex. No masses, stones, or hydronephrosis. Vasculature: Proximal abdominal aorta and IVC are normal. IMPRESSION: Status post cholecystectomy. Otherwise unremarkable right upper quadrant ultrasound. Dictated by Brandin Romero MD @ Aug 24 2020 8:50AM Signed by Dr. Brandin Romero @ Aug 24 2020 8:52AM
[2020-08-24] MEDS: Dexamethasone 4 MG Tab PO SCH (09:47)
[2020-08-24] MEDS: Enoxaparin 40 MG/0.4 ML Syringe SUBCUT SCH ×2 (09:48→21:27)
[2020-08-24] MEDS: Sertraline 100 MG Tab PO SCH (09:52)
[2020-08-24] MEDS: Levothyroxine 100 MCG Tab PO SCH (09:53)
[2020-08-24] MEDS ORDERED: Sodium Chloride 0.65% Nasal Spray 45 ML Bottle NAS PRN (10:55)
[2020-08-24] MEDS ORDERED: Sodium Chloride 0.9% 2.5 ML Syringe FLUSH PRN (12:59)
[2020-08-24] MEDS ORDERED: Acetaminophen 325 MG Tab PO PRN (12:59)
[2020-08-24] MEDS ORDERED: Ondansetron 4 MG/2 ML SDV IVPUSH PRN (12:59)
[2020-08-24] MEDS ORDERED: REMDESIVIR 100 MG in Sodium Chloride 0.9% 100 ML IV SCH (17:00)
[2020-08-24] MEDS: REMDESIVIR 100 MG in Sodium Chloride 0.9% 100 ML IV SCH (17:03)
[2020-08-24] MEDS: traZODone 50 MG Tab PO SCH (21:27)
[2020-08-25] MEDS: Albuterol/Ipratropium 4 GM Inhalation Spray INH SCH ×7 (00:27→22:24)
[2020-08-25 06:25] LABS: BLOOD UREA NITROGEN,BUN 15 mg/dL (7.0-18.0); CARBON DIOXIDE,CO2 29.5 mmol/L (21.0-32.0); CHLORIDE,CL 105 mmol/L (98-107); GLUCOSE RANDOM 97 mg/dL (74-106); POTASSIUM,K 3.3 mmol/L (3.5-5.1); SODIUM,NA 143 mmol/L (136-145)
[2020-08-25] MEDS ORDERED: Potassium Chloride 20 MEQ Tab.ER PO ONE (07:55)
[2020-08-25] MEDS: Levothyroxine 100 MCG Tab PO SCH (09:46)
[2020-08-25] MEDS: Sertraline 100 MG Tab PO SCH (09:47)
[2020-08-25] MEDS: Dexamethasone 4 MG Tab PO SCH (09:48)
[2020-08-25] MEDS: Enoxaparin 40 MG/0.4 ML Syringe SUBCUT SCH ×2 (09:49→22:21)
[2020-08-25] MEDS: Levofloxacin/Dextrose 5%-Water 750 MG in Premix Bag 1 BAG IV SCH (09:56)
--- NOTE | 2020-08-25 11:51 | PCM.PN ---
- General Info Date of Service: 08/25/20 Admission Dx/Problem (Free Text): Admission Diagnosis/Problem Admission Diagnosis/Problem Bilateral pneumonia Subjective Update: Feeling somewhat improved today. Continues to require 7 L high flow nasal cannula. Reports she has been able to prone during the evening and feels as though she will be able to continue this. She is encouraged to attempt this for at least 12 to 16 hours a day. Denies any chest pain. No overt shortness of breath. No diarrhea. Tolerating food and is now hungry. Functional Status: Reports: Pain Controlled, Tolerating Diet, Ambulating, Urinating - Review of Systems General: Reports: Fatigue, Malaise Pulmonary: Reports: Shortness of Breath, Cough. Denies: Sputum Cardiovascular: Reports: No Symptoms. Denies: Chest Pain Gastrointestinal: Reports: No Symptoms. Denies: Abdominal Pain, Nausea, Vomiting Genitourinary: Reports: No Symptoms Musculoskeletal: Reports: No Symptoms Skin: Reports: No Symptoms Neurological: Reports: No Symptoms Psychiatric: Reports: No Symptoms - Patient Data Vitals - Most Recent: Last Vital Signs Temp 96.9 F 08/25/20 08:00 Pulse 88 08/25/20 08:00 Resp 16 08/25/20 08:00 BP 114/74 08/25/20 08:00 Pulse Ox 92 L 08/25/20 08:00 Weight - Most Recent: 114.759 kg I&O - Last 24 Hours: Intake & Output 08/24/20 08/25/20 08/25/20 22:59 06:59 14:59 Intake Total 120 500 Output Total 250 500 Balance -130 0 Lab Results Last 24 Hours: Laboratory Results - last 24 hr 08/25/20 08/25/20 Range/Units 05:35 05:35 WBC 6.96 (4.0-11.0) K/uL RBC 4.49 (4.30-5.90) M/uL Hgb 13.6 (12.0-16.0) g/dL Hct 41.5 (36.0-46.0) % MCV 92.4 (80.0-98.0) fL MCH 30.3 (27.0-32.0) pg MCHC 32.8 (31.0-37.0) g/dL RDW Std Deviation 43.1 (28.0-62.0) fl RDW Coeff of Michelle 13 (11.0-15.0) % Plt Count 265 (150-400) K/uL MPV 9.10 (7.40-12.00) fL Add Manual Diff YES Neutrophils % (Manual) 67 (48.0-80.0) % Band Neutrophils % 5 % Lymphocytes % (Manual) 23 (16.0-40.0) % Monocytes % (Manual) 5 (0.0-15.0) % Nucleated RBC % 0.0 /100WBC Absolute Seg Neuts 4.7 (1.4-5.7) Band Neutrophils # 0.3 Lymphocytes # (Manual) 1.6 (0.6-2.4) Monocytes # (Manual) 0.3 (0.0-0.8) Nucleated RBCs # 0 K/uL Sodium 143 (136-145) mmol/L Potassium 3.3 L (3.5-5.1) mmol/L Chloride 105 (98-107) mmol/L Carbon Dioxide 29.5 (21.0-32.0) mmol/L BUN 15 (7.0-18.0) mg/dL Creatinine 0.7 (0.6-1.0) mg/dL Est Cr Clr Drug Dosing 91.33 mL/min Estimated GFR (MDRD) > 60.0 ml/min Glucose 97 (74-106) mg/dL Calcium 8.6 (8.5-10.1) mg/dL Magnesium 2.1 (1.8-2.4) mg/dL Total Bilirubin 0.6 (0.2-1.0) mg/dL AST 125 H (15-37) IU/L ALT 172 H (14-63) IU/L Alkaline Phosphatase 137 H (46-116) U/L Total Protein 6.5 (6.4-8.2) g/dL Albumin 2.4 L (3.4-5.0) g/dL Globulin 4.1 H (2.6-4.0) g/dL Albumin/Globulin Ratio 0.6 L (0.9-1.6) Kurt Results Last 24 Hours: Microbiology 08/23/20 16:25 Aerobic Blood Culture - Preliminary Blood - Venous - Lab Draw NO GROWTH AFTER 1 DAY Anaerobic Blood Culture - Preliminary NO GROWTH AFTER 1 DAY 08/23/20 16:20 Aerobic Blood Culture - Preliminary Blood - Venous NO GROWTH AFTER 1 DAY Anaerobic Blood Culture - Preliminary NO GROWTH AFTER 1 DAY Med Orders - Current: Current Medications Acetaminophen (Tylenol) 650 mg PO Q4H PRN PRN Reason: Pain Albuterol/Ipratropium (Combivent Respimat) 0 gm INH Q4H [facility] Last Admin: 08/25/20 09:27 Dose: 1 puff Documented by: Dexamethasone (Dexamethasone) 6 mg PO DAILY [facility] Last Admin: 08/25/20 09:48 Dose: 6 mg Documented by: Enoxaparin Sodium (Lovenox) 40 mg SUBCUT Q12H [facility] Last Admin: 08/25/20 09:49 Dose: 40 mg Documented by: Guaifenesin/Dextromethorphan (Robitussin Dm) 10 ml PO Q4H PRN PRN Reason: Cough Last Admin: 08/24/20 21:27 Dose: 10 ml Documented by: Remdesivir 100 mg/ Sodium (Chloride) 100 mls @ 100 mls/hr IV Q24H [facility] Last Admin: 08/24/20 17:03 Dose: 100 mls/hr Documented by: Levofloxacin/Dextrose 750 mg/ (Premix) 150 mls @ 100 mls/hr IV Q24H [facility] Last Admin: 08/25/20 09:56 Dose: 100 mls/hr Documented by: Levothyroxine Sodium (Synthroid) 200 mcg PO ACBREAKFAST [facility] Last Admin: 08/25/20 09:46 Dose: 200 mcg Documented by: Ondansetron HCl (Zofran) 4 mg IVPUSH Q4H PRN PRN Reason: Nausea Sertraline HCl (Zoloft) 150 mg PO DAILY [facility] Last Admin: 08/25/20 09:47 Dose: 150 mg Documented by: Sodium Chloride ([place] Nasal [place]) 0 ml KATHRIN Q2H PRN PRN Reason: nasal congestion Last Admin: 08/24/20 11:21 Dose: 1 spray Documented by: Sodium Chloride (Saline Flush) 2.5 ml FLUSH ASDIRECTED PRN PRN Reason: Keep Vein Open Trazodone HCl (Trazodone) 50 mg PO BEDTIME [facility] Last Admin: 08/24/20 21:27 Dose: 50 mg Documented by: Discontinued Medications Acetaminophen (Tylenol) 650 mg PO Q4H PRN PRN Reason: Pain (Mild 1-3)/fever Albuterol/Ipratropium (Combivent Respimat) 0 gm INH Q4H [facility] Albuterol/Ipratropium (Combivent Respimat) 0 gm INH Q4HR [facility] Last Admin: 08/24/20 17:02 Dose: 1 inhalation Documented by: Aspirin (Aspirin) 324 mg PO ONETIME ONE Stop: 08/23/20 17:26 Last Admin: 08/23/20 17:51 Dose: 324 mg Documented by: Dexamethasone (Dexamethasone) 6 mg PO ONETIME ONE Stop: 08/23/20 16:06 Last Admin: 08/23/20 16:24 Dose: 6 mg Documented by: Dexamethasone (Dexamethasone) 6 mg PO DAILY [facility] Last Admin: 08/23/20 21:18 Dose: Not Given Documented by: Enoxaparin Sodium (Lovenox) 115 mg 1 mg/kg (115 mg) SUBCUT ONETIME ONE Stop: 08/23/20 17:44 Last Admin: 08/23/20 17:53 Dose: 115 mg Documented by: Enoxaparin Sodium (Lovenox) 40 mg SUBCUT Q12H [facility] Last Admin: 08/23/20 21:18 Dose: Not Given Documented by: Magnesium Sulfate 2 gm/ Premix 50 mls @ 50 mls/hr IV ONETIME ONE Stop: 08/23/20 18:26 Last Admin: 08/23/20 17:54 Dose: 50 mls/hr Documented by: Remdesivir 200 mg/ Sodium (Chloride) 250 mls @ 250 mls/hr IV ONETIME ONE Stop: 08/23/20 17:28 Last Admin: 08/23/20 18:47 Dose: 250 mls/hr Documented by: Remdesivir 200 mg/ Sodium (Chloride) 250 mls @ 250 mls/hr IV ONETIME ONE Stop: 08/23/20 20:18 Last Admin: 08/23/20 21:18 Dose: Not Given Documented by: Remdesivir 100 mg/ Sodium (Chloride) 100 mls @ 100 mls/hr IV Q24H [facility] Stop: 08/27/20 17:59 Iopamidol (Isovue Multipack-370 (76%)) 100 ml IVPUSH ONETIME STA Stop: 08/23/20 20:47 Last Admin: 08/23/20 20:49 Dose: 100 ml Documented by: Potassium Chloride (Potassium Chloride) 60 meq PO ONETIME ONE Stop: 08/23/20 17:28 Last Admin: 08/23/20 17:51 Dose: 60 meq Documented by: Potassium Chloride (Potassium Chloride) 40 meq PO ONETIME ONE Stop: 08/23/20 20:50 Potassium Chloride ([place]-Con M20) 40 meq PO ONETIME ONE Stop: 08/25/20 07:56 Last Admin: 08/25/20 09:52 Dose: 40 meq Documented by: Sodium Chloride (Saline Flush) 10 ml FLUSH ASDIRECTED PRN PRN Reason: Keep Vein Open Last Admin: 08/23/20 16:24 Dose: 10 ml Documented by: Sodium Chloride (Saline Flush) 2.5 ml FLUSH ASDIRECTED PRN PRN Reason: Keep Vein Open Last Admin: 08/23/20 16:24 Dose: 2.5 ml Documented by: - Exam Quality Assessment: Supplemental Oxygen, DVT Prophylaxis General: Alert, Oriented, Cooperative, No Acute Distress Lungs: Decreased Breath Sounds. No: Normal Respiratory Effort (Intermittent dyspnea) Cardiovascular: Regular Rate, Regular Rhythm GI/Abdominal Exam: Normal Bowel Sounds, Soft, Non-Tender Extremities: Normal Inspection, Normal Range of Motion, Non-Tender, No Pedal Edema Neurological: No New Focal Deficit Psy/Mental Status: Alert, Normal Affect, Normal Mood Sepsis Event Note - Evaluation Sepsis Screening Result: No Definite Risk - Focused Exam Vital Signs: Vital Signs Temp Pulse Resp BP Pulse Ox 08/25/20 08:00 96.9 F 88 16 114/74 92 L 08/25/20 03:34 96.5 F L 85 20 131/92 H 91 L 08/25/20 00:21 96.5 F L 82 21 H 142/97 H 92 L - Problem List & Annotations (1) Acute on chronic respiratory failure with hypoxia SNOMED Code(s): 73954607, 164701490 Code(s): J96.21 - ACUTE AND CHRONIC RESPIRATORY FAILURE WITH HYPOXIA Status: Acute Current Visit: Yes (2) Bilateral pneumonia SNOMED Code(s): 318094614 Code(s): J18.9 - PNEUMONIA, UNSPECIFIED ORGANISM Status: Acute Current Visit: Yes (3) COVID-19 SNOMED Code(s): 617962707 Code(s): U07.1 - COVID-19 Status: Acute Current Visit: Yes (4) Elevated troponin SNOMED Code(s): 853113120, 674986091, 069963650 Code(s): R77.8 - OTHER SPECIFIED ABNORMALITIES OF PLASMA PROTEINS Status: Acute Current Visit: Yes - Problem List Review Problem List Initiated/Reviewed/Updated: Yes - My Orders Last 24 Hours: My Active Orders 08/24/20 10:55 Sodium Chloride 0.65% [[place] Nasal Edgar] See Dose Instructions KATHRIN Q2H PRN 08/24/20 12:59 Acetaminophen [TylenoL] 650 mg PO Q4H PRN Ondansetron [Zofran] 4 mg IVPUSH Q4H PRN Sodium Chloride 0.9% [Saline Flush] 2.5 ml FLUSH ASDIRECTED PRN Saline Lock Insert [OM.PC] Routine 08/24/20 17:00 Remdesivir (Eua) [Remdesivir (EUA)] 100 mg Sodium Chloride 0.9% [Normal Saline] 100 ml IV Q24H 08/24/20 21:00 traZODone 50 mg PO BEDTIME 08/25/20 10:00 Levofloxacin/Dextrose 5%-Water [Levaquin in D5W 750 MG/150 ML] 750 mg Premix Bag 1 bag IV Q24H 08/26/20 05:11 CBC WITH AUTO DIFF [HEME] AM COMPREHENSIVE METABOLIC PN,CMP [CHEM] AM MAGNESIUM [CHEM] AM 08/27/20 05:11 CBC WITH AUTO DIFF [HEME] AM COMPREHENSIVE METABOLIC PN,CMP [CHEM] AM MAGNESIUM [CHEM] AM - Plan Plan:: 40-year-old female admitted for Hypoxic respiratory failure secondary to COVID- 19 1. Acute hypoxic respiratory failure and COVID-19 pneumonia -Continue oxygen therapy to keep sats greater than 92% wean as possible. -Yesterday had an elevated need for oxygen requiring 8 to 10 L. She currently is now requiring 7 to 8 L high flow nasal cannula -Continue remdesivir 100 mg IV daily x4 more doses total of 5-day course. -Transaminitis stable - continue dexamethasone 6 mg daily - Continue Lovenox augmented dosing 40 twice daily - Encourage incentive spirometry and proning - Combivent every 4 hours - Guaifenesin every 4 hours as needed for cough -We will add Levaquin due to prolonged illness concern for secondary bacterial infection. Levaquin 750 mg IV daily 2. Transaminitis - stable VTE prophylaxis: Lovenox twice daily CODE STATUS: Full code Dispo: 2 to 3 days pending improvement
[2020-08-25] MEDS: REMDESIVIR 100 MG in Sodium Chloride 0.9% 100 ML IV SCH (17:56)
[2020-08-25] MEDS: traZODone 50 MG Tab PO SCH (22:21)
[2020-08-26] MEDS: Albuterol/Ipratropium 4 GM Inhalation Spray INH SCH ×6 (01:31→21:21)
[2020-08-26 06:36] LABS: BLOOD UREA NITROGEN,BUN 16 mg/dL (7.0-18.0); CARBON DIOXIDE,CO2 28.2 mmol/L (21.0-32.0); CHLORIDE,CL 105 mmol/L (98-107); GLUCOSE RANDOM 93 mg/dL (74-106); POTASSIUM,K 3.5 mmol/L (3.5-5.1); SODIUM,NA 143 mmol/L (136-145)
[2020-08-26] MEDS: Levothyroxine 100 MCG Tab PO SCH (06:59)
--- NOTE | 2020-08-26 08:07 | PCM.PN ---
- General Info Date of Service: 08/26/20 Admission Dx/Problem (Free Text): Admission Diagnosis/Problem Admission Diagnosis/Problem Bilateral pneumonia Subjective Update: Continues to have shortness of breath intermittently. But overall is feeling well today. Having more of a moist cough with small amounts of sputum produced. Denies any chest pain. No abdominal pain. Tolerating diet well. Functional Status: Reports: Pain Controlled, Tolerating Diet, Ambulating, Urinating - Review of Systems General: Reports: Fatigue, Malaise HEENT: Reports: Sinus Congestion (Improved with nasal spray) Pulmonary: Reports: Shortness of Breath, Cough, Sputum. Denies: Wheezing Cardiovascular: Reports: No Symptoms. Denies: Chest Pain Gastrointestinal: Reports: No Symptoms. Denies: Abdominal Pain, Nausea, Vomiting Genitourinary: Reports: No Symptoms. Denies: Dysuria, Frequency, Burning Musculoskeletal: Reports: No Symptoms Skin: Reports: No Symptoms Neurological: Reports: No Symptoms Psychiatric: Reports: No Symptoms - Patient Data Vitals - Most Recent: Last Vital Signs Temp 96 F L 08/26/20 04:54 Pulse 83 08/26/20 04:54 Resp 18 08/26/20 04:54 BP 109/68 08/26/20 04:54 Pulse Ox 92 L 08/26/20 04:54 Weight - Most Recent: 114.759 kg I&O - Last 24 Hours: Intake & Output 08/25/20 08/26/20 08/26/20 22:59 06:59 14:59 Intake Total 1420 300 Output Total 550 500 Balance 870 -200 Lab Results Last 24 Hours: Laboratory Results - last 24 hr 08/26/20 08/26/20 Range/Units 05:23 05:23 WBC 7.04 (4.0-11.0) K/uL RBC 4.54 (4.30-5.90) M/uL Hgb 13.5 (12.0-16.0) g/dL Hct 41.8 (36.0-46.0) % MCV 92.1 (80.0-98.0) fL MCH 29.7 (27.0-32.0) pg MCHC 32.3 (31.0-37.0) g/dL RDW Std Deviation 43.2 (28.0-62.0) fl RDW Coeff of Michelle 13 (11.0-15.0) % Plt Count 295 (150-400) K/uL MPV 9.00 (7.40-12.00) fL Neut % (Auto) 72.2 (48.0-80.0) % Lymph % (Auto) 19.6 (16.0-40.0) % [place] % (Auto) 8.1 (0.0-15.0) % Eos % (Auto) 0.0 (0.0-7.0) % Baso % (Auto) 0.1 (0.0-1.5) % Neut # (Auto) 5.1 (1.4-5.7) K/uL Lymph # (Auto) 1.4 (0.6-2.4) K/uL [place] # (Auto) 0.6 (0.0-0.8) K/uL Eos # (Auto) 0.0 (0.0-0.7) K/uL Baso # (Auto) 0.0 (0.0-0.1) K/uL Nucleated RBC % 0.0 /100WBC Nucleated RBCs # 0 K/uL Sodium 143 (136-145) mmol/L Potassium 3.5 (3.5-5.1) mmol/L Chloride 105 (98-107) mmol/L Carbon Dioxide 28.2 (21.0-32.0) mmol/L BUN 16 (7.0-18.0) mg/dL Creatinine 0.7 (0.6-1.0) mg/dL Est Cr Clr Drug Dosing 91.33 mL/min Estimated GFR (MDRD) > 60.0 ml/min Glucose 93 (74-106) mg/dL Calcium 8.8 (8.5-10.1) mg/dL Magnesium 2.1 (1.8-2.4) mg/dL Total Bilirubin 0.6 (0.2-1.0) mg/dL AST 133 H (15-37) IU/L ALT 211 H (14-63) IU/L Alkaline Phosphatase 127 H (46-116) U/L Total Protein 6.4 (6.4-8.2) g/dL Albumin 2.4 L (3.4-5.0) g/dL Globulin 4.0 (2.6-4.0) g/dL Albumin/Globulin Ratio 0.6 L (0.9-1.6) Kurt Results Last 24 Hours: Microbiology 08/23/20 16:25 Aerobic Blood Culture - Preliminary Blood - Venous - Lab Draw NO GROWTH AFTER 2 DAYS Anaerobic Blood Culture - Preliminary NO GROWTH AFTER 2 DAYS 08/23/20 16:20 Aerobic Blood Culture - Preliminary Blood - Venous NO GROWTH AFTER 2 DAYS Anaerobic Blood Culture - Preliminary NO GROWTH AFTER 2 DAYS Med Orders - Current: Current Medications Acetaminophen (Tylenol) 650 mg PO Q4H PRN PRN Reason: Pain Albuterol/Ipratropium (Combivent Respimat) 0 gm INH Q4H [facility] Last Admin: 08/26/20 05:58 Dose: 1 puff Documented by: Dexamethasone (Dexamethasone) 6 mg PO DAILY [facility] Last Admin: 08/25/20 09:48 Dose: 6 mg Documented by: Enoxaparin Sodium (Lovenox) 40 mg SUBCUT Q12H [facility] Last Admin: 08/25/20 22:21 Dose: 40 mg Documented by: Guaifenesin/Dextromethorphan (Robitussin Dm) 10 ml PO Q4H PRN PRN Reason: Cough Last Admin: 08/24/20 21:27 Dose: 10 ml Documented by: Remdesivir 100 mg/ Sodium (Chloride) 100 mls @ 100 mls/hr IV Q24H [facility] Last Admin: 08/25/20 17:56 Dose: 100 mls/hr Documented by: Levofloxacin/Dextrose 750 mg/ (Premix) 150 mls @ 100 mls/hr IV Q24H [facility] Last Admin: 08/25/20 09:56 Dose: 100 mls/hr Documented by: Levothyroxine Sodium (Synthroid) 200 mcg PO ACBREAKFAST [facility] Last Admin: 08/26/20 06:59 Dose: 200 mcg Documented by: Ondansetron HCl (Zofran) 4 mg IVPUSH Q4H PRN PRN Reason: Nausea Sertraline HCl (Zoloft) 150 mg PO DAILY [facility] Last Admin: 08/25/20 09:47 Dose: 150 mg Documented by: Sodium Chloride ([place] Nasal [place]) 0 ml KATHRIN Q2H PRN PRN Reason: nasal congestion Last Admin: 08/24/20 11:21 Dose: 1 spray Documented by: Sodium Chloride (Saline Flush) 2.5 ml FLUSH ASDIRECTED PRN PRN Reason: Keep Vein Open Trazodone HCl (Trazodone) 50 mg PO BEDTIME [facility] Last Admin: 08/25/20 22:21 Dose: 50 mg Documented by: Discontinued Medications Acetaminophen (Tylenol) 650 mg PO Q4H PRN PRN Reason: Pain (Mild 1-3)/fever Albuterol/Ipratropium (Combivent Respimat) 0 gm INH Q4H [facility] Albuterol/Ipratropium (Combivent Respimat) 0 gm INH Q4HR [facility] Last Admin: 08/24/20 17:02 Dose: 1 inhalation Documented by: Aspirin (Aspirin) 324 mg PO ONETIME ONE Stop: 08/23/20 17:26 Last Admin: 08/23/20 17:51 Dose: 324 mg Documented by: Dexamethasone (Dexamethasone) 6 mg PO ONETIME ONE Stop: 08/23/20 16:06 Last Admin: 08/23/20 16:24 Dose: 6 mg Documented by: Dexamethasone (Dexamethasone) 6 mg PO DAILY [facility] Last Admin: 08/23/20 21:18 Dose: Not Given Documented by: Enoxaparin Sodium (Lovenox) 115 mg 1 mg/kg (115 mg) SUBCUT ONETIME ONE Stop: 08/23/20 17:44 Last Admin: 08/23/20 17:53 Dose: 115 mg Documented by: Enoxaparin Sodium (Lovenox) 40 mg SUBCUT Q12H [facility] Last Admin: 08/23/20 21:18 Dose: Not Given Documented by: Magnesium Sulfate 2 gm/ Premix 50 mls @ 50 mls/hr IV ONETIME ONE Stop: 08/23/20 18:26 Last Admin: 08/23/20 17:54 Dose: 50 mls/hr Documented by: Remdesivir 200 mg/ Sodium (Chloride) 250 mls @ 250 mls/hr IV ONETIME ONE Stop: 08/23/20 17:28 Last Admin: 08/23/20 18:47 Dose: 250 mls/hr Documented by: Remdesivir 200 mg/ Sodium (Chloride) 250 mls @ 250 mls/hr IV ONETIME ONE Stop: 08/23/20 20:18 Last Admin: 08/23/20 21:18 Dose: Not Given Documented by: Remdesivir 100 mg/ Sodium (Chloride) 100 mls @ 100 mls/hr IV Q24H [facility] Stop: 08/27/20 17:59 Iopamidol (Isovue Multipack-370 (76%)) 100 ml IVPUSH ONETIME STA Stop: 08/23/20 20:47 Last Admin: 08/23/20 20:49 Dose: 100 ml Documented by: Potassium Chloride (Potassium Chloride) 60 meq PO ONETIME ONE Stop: 08/23/20 17:28 Last Admin: 08/23/20 17:51 Dose: 60 meq Documented by: Potassium Chloride (Potassium Chloride) 40 meq PO ONETIME ONE Stop: 08/23/20 20:50 Potassium Chloride (Klor-Con M20) 40 meq PO ONETIME ONE Stop: 08/25/20 07:56 Last Admin: 08/25/20 09:52 Dose: 40 meq Documented by: Sodium Chloride (Saline Flush) 10 ml FLUSH ASDIRECTED PRN PRN Reason: Keep Vein Open Last Admin: 08/23/20 16:24 Dose: 10 ml Documented by: Sodium Chloride (Saline Flush) 2.5 ml FLUSH ASDIRECTED PRN PRN Reason: Keep Vein Open Last Admin: 08/23/20 16:24 Dose: 2.5 ml Documented by: - Exam Quality Assessment: Supplemental Oxygen, DVT Prophylaxis General: Alert, Oriented, Cooperative, No Acute Distress Lungs: Decreased Breath Sounds, Rhonchi. No: Normal Respiratory Effort (Dyspnea) Cardiovascular: Regular Rate, Regular Rhythm GI/Abdominal Exam: Normal Bowel Sounds, Soft, Non-Tender Back Exam: Normal Inspection, Full Range of Motion Extremities: Normal Inspection, Normal Range of Motion, Non-Tender, No Pedal Edema Neurological: No New Focal Deficit Psy/Mental Status: Alert, Normal Affect, Normal Mood Sepsis Event Note - Evaluation Sepsis Screening Result: No Definite Risk - Focused Exam Vital Signs: Vital Signs Temp Pulse Resp BP Pulse Ox 08/26/20 04:54 96 F L 83 18 109/68 92 L 08/26/20 01:29 96.5 F L 83 18 130/92 H 92 L 08/25/20 22:17 97.3 F 77 18 136/92 H 94 L - Problem List & Annotations (1) Acute on chronic respiratory failure with hypoxia SNOMED Code(s): 19738138, 749234239 Code(s): J96.21 - ACUTE AND CHRONIC RESPIRATORY FAILURE WITH HYPOXIA Status: Acute Current Visit: Yes (2) Bilateral pneumonia SNOMED Code(s): 758588413 Code(s): J18.9 - PNEUMONIA, UNSPECIFIED ORGANISM Status: Acute Current Visit: Yes (3) COVID-19 SNOMED Code(s): 126145959 Code(s): U07.1 - COVID-19 Status: Acute Current Visit: Yes (4) Elevated troponin SNOMED Code(s): 910665142, 809304314, 902837887 Code(s): R77.8 - OTHER SPECIFIED ABNORMALITIES OF PLASMA PROTEINS Status: Acute Current Visit: Yes - Problem List Review Problem List Initiated/Reviewed/Updated: Yes - My Orders Last 24 Hours: My Active Orders 08/25/20 10:00 Levofloxacin/Dextrose 5%-Water [Levaquin in D5W 750 MG/150 ML] 750 mg Premix Bag 1 bag IV Q24H 08/27/20 05:11 CBC WITH AUTO DIFF [HEME] AM COMPREHENSIVE METABOLIC PN,CMP [CHEM] AM MAGNESIUM [CHEM] AM - Plan Plan:: 40-year-old female admitted for Hypoxic respiratory failure secondary to COVID- 19 1. Acute hypoxic respiratory failure and COVID-19 pneumonia -Continue oxygen therapy to keep sats greater than 92% wean as possible. -Continues to require 7 L of oxygen oxygen x2 desat when not proning. Proning improves oxygenation to 97% and better. -Continue remdesivir 100 mg IV daily x4 more doses total of 5-day course. -Transaminitis stable - continue dexamethasone 6 mg daily - Continue Lovenox augmented dosing 40 twice daily - Encourage incentive spirometry and proning - Combivent every 4 hours - Guaifenesin every 4 hours as needed for cough -Continue Levaquin 750 IV daily 2. Transaminitis - stable VTE prophylaxis: Lovenox twice daily CODE STATUS: Full code Dispo: 2 to 3 days pending improvement
[2020-08-26] MEDS: Enoxaparin 40 MG/0.4 ML Syringe SUBCUT SCH ×2 (10:09→21:13)
[2020-08-26] MEDS: Dexamethasone 4 MG Tab PO SCH (10:10)
[2020-08-26] MEDS: Sertraline 100 MG Tab PO SCH (10:10)
[2020-08-26] MEDS: Levofloxacin/Dextrose 5%-Water 750 MG in Premix Bag 1 BAG IV SCH (10:13)
[2020-08-26] MEDS: Nystatin Topical Powder 15 GM Bottle TOP SCH (13:52)
[2020-08-26] MEDS: REMDESIVIR 100 MG in Sodium Chloride 0.9% 100 ML IV SCH (16:50)
[2020-08-26] MEDS: traZODone 50 MG Tab PO SCH (21:13)
[2020-08-27] MEDS: Albuterol/Ipratropium 4 GM Inhalation Spray INH SCH ×7 (00:16→21:01)
[2020-08-27] MEDS: Nystatin Topical Powder 15 GM Bottle TOP SCH ×4 (00:17→21:19)
[2020-08-27 06:22] LABS: BLOOD UREA NITROGEN,BUN 14 mg/dL (7.0-18.0); CARBON DIOXIDE,CO2 27.6 mmol/L (21.0-32.0); CHLORIDE,CL 105 mmol/L (98-107); GLUCOSE RANDOM 86 mg/dL (74-106); POTASSIUM,K 3.7 mmol/L (3.5-5.1); SODIUM,NA 142 mmol/L (136-145)
--- NOTE | 2020-08-27 08:05 | PCM.PN ---
- General Info Date of Service: 08/27/20 Admission Dx/Problem (Free Text): Admission Diagnosis/Problem Admission Diagnosis/Problem Bilateral pneumonia Subjective Update: Continues to steadily and slowly improved. On 6 L today. Reporting she is coughing up more and more mucus that is green in color. Denies any chest pain. She is proning a significant amount of the day. She denies any nausea vomiting or diarrhea. Sinus congestion is stable [place] to nares has helped. She is up ambulating to the bathroom and back does get somewhat short of breath but remains stable. Functional Status: Reports: Pain Controlled, Tolerating Diet, Ambulating, Urinating - Review of Systems General: Reports: Fatigue, Malaise (Reports she slept much better last night and is feeling improved today) Pulmonary: Reports: Shortness of Breath (Improving), Sputum (Green). Denies: Wheezing Cardiovascular: Reports: No Symptoms. Denies: Chest Pain, Lightheadedness Gastrointestinal: Reports: No Symptoms. Denies: Abdominal Pain, Nausea, Vomiting Genitourinary: Reports: No Symptoms. Denies: Dysuria, Frequency, Burning Skin: Reports: No Symptoms Neurological: Reports: No Symptoms Psychiatric: Reports: No Symptoms - Patient Data Vitals - Most Recent: Last Vital Signs Temp 96.0 F L 08/27/20 03:24 Pulse 80 08/27/20 03:24 Resp 18 08/27/20 03:24 BP 109/79 08/27/20 03:24 Pulse Ox 92 L 08/27/20 04:27 Weight - Most Recent: 114.759 kg I&O - Last 24 Hours: Intake & Output 08/26/20 08/27/20 08/27/20 22:59 06:59 14:59 Intake Total 800 Output Total 450 1000 Balance -450 -200 Lab Results Last 24 Hours: Laboratory Results - last 24 hr 08/27/20 08/27/20 Range/Units 05:35 05:35 WBC 7.22 (4.0-11.0) K/uL RBC 4.51 (4.30-5.90) M/uL Hgb 13.4 (12.0-16.0) g/dL Hct 41.6 (36.0-46.0) % MCV 92.2 (80.0-98.0) fL MCH 29.7 (27.0-32.0) pg MCHC 32.2 (31.0-37.0) g/dL RDW Std Deviation 43.0 (28.0-62.0) fl RDW Coeff of Michelle 13 (11.0-15.0) % Plt Count 297 (150-400) K/uL MPV 8.80 (7.40-12.00) fL Neut % (Auto) 68.8 (48.0-80.0) % Lymph % (Auto) 21.9 (16.0-40.0) % [place] % (Auto) 8.6 (0.0-15.0) % Eos % (Auto) 0.6 (0.0-7.0) % Baso % (Auto) 0.1 (0.0-1.5) % Neut # (Auto) 5.0 (1.4-5.7) K/uL Lymph # (Auto) 1.6 (0.6-2.4) K/uL [place] # (Auto) 0.6 (0.0-0.8) K/uL Eos # (Auto) 0.0 (0.0-0.7) K/uL Baso # (Auto) 0.0 (0.0-0.1) K/uL Nucleated RBC % 0.0 /100WBC Nucleated RBCs # 0 K/uL Sodium 142 (136-145) mmol/L Potassium 3.7 (3.5-5.1) mmol/L Chloride 105 (98-107) mmol/L Carbon Dioxide 27.6 (21.0-32.0) mmol/L BUN 14 (7.0-18.0) mg/dL Creatinine 0.7 (0.6-1.0) mg/dL Est Cr Clr Drug Dosing 91.33 mL/min Estimated GFR (MDRD) > 60.0 ml/min Glucose 86 (74-106) mg/dL Calcium 8.6 (8.5-10.1) mg/dL Magnesium 2.1 (1.8-2.4) mg/dL Total Bilirubin 0.6 (0.2-1.0) mg/dL AST 123 H (15-37) IU/L ALT 220 H (14-63) IU/L Alkaline Phosphatase 121 H (46-116) U/L Total Protein 6.3 L (6.4-8.2) g/dL Albumin 2.4 L (3.4-5.0) g/dL Globulin 3.9 (2.6-4.0) g/dL Albumin/Globulin Ratio 0.6 L (0.9-1.6) Kurt Results Last 24 Hours: Microbiology 08/23/20 16:25 Aerobic Blood Culture - Preliminary Blood - Venous - Lab Draw NO GROWTH AFTER 3 DAYS Anaerobic Blood Culture - Preliminary NO GROWTH AFTER 3 DAYS 08/23/20 16:20 Aerobic Blood Culture - Preliminary Blood - Venous NO GROWTH AFTER 3 DAYS Anaerobic Blood Culture - Preliminary NO GROWTH AFTER 3 DAYS Med Orders - Current: Current Medications Acetaminophen (Tylenol) 650 mg PO Q4H PRN PRN Reason: Pain Albuterol/Ipratropium (Combivent Respimat) 0 gm INH Q4H [facility] Last Admin: 08/27/20 05:24 Dose: 1 puff Documented by: Dexamethasone (Dexamethasone) 6 mg PO DAILY [facility] Last Admin: 08/26/20 10:10 Dose: 6 mg Documented by: Enoxaparin Sodium (Lovenox) 40 mg SUBCUT Q12H [facility] Last Admin: 08/26/20 21:13 Dose: 40 mg Documented by: Guaifenesin/Dextromethorphan (Robitussin Dm) 10 ml PO Q4H PRN PRN Reason: Cough Last Admin: 08/24/20 21:27 Dose: 10 ml Documented by: Remdesivir 100 mg/ Sodium (Chloride) 100 mls @ 100 mls/hr IV Q24H [facility] Last Admin: 08/26/20 16:50 Dose: 100 mls/hr Documented by: Levofloxacin/Dextrose 750 mg/ (Premix) 150 mls @ 100 mls/hr IV Q24H [facility] Last Admin: 08/26/20 10:13 Dose: 100 mls/hr Documented by: Levothyroxine Sodium (Synthroid) 200 mcg PO ACBREAKFAST [facility] Last Admin: 08/26/20 06:59 Dose: 200 mcg Documented by: Nystatin (Nystop) 0 gm TOP TID [facility] Last Admin: 08/27/20 05:24 Dose: Not Given Documented by: Ondansetron HCl (Zofran) 4 mg IVPUSH Q4H PRN PRN Reason: Nausea Sertraline HCl (Zoloft) 150 mg PO DAILY [facility] Last Admin: 08/26/20 10:10 Dose: 150 mg Documented by: Sodium Chloride ([place] Nasal [place]) 0 ml KATHRIN Q2H PRN PRN Reason: nasal congestion Last Admin: 08/24/20 11:21 Dose: 1 spray Documented by: Sodium Chloride (Saline Flush) 2.5 ml FLUSH ASDIRECTED PRN PRN Reason: Keep Vein Open Trazodone HCl (Trazodone) 50 mg PO BEDTIME [facility] Last Admin: 08/26/20 21:13 Dose: 50 mg Documented by: Discontinued Medications Acetaminophen (Tylenol) 650 mg PO Q4H PRN PRN Reason: Pain (Mild 1-3)/fever Albuterol/Ipratropium (Combivent Respimat) 0 gm INH Q4H [facility] Albuterol/Ipratropium (Combivent Respimat) 0 gm INH Q4HR [facility] Last Admin: 08/24/20 17:02 Dose: 1 inhalation Documented by: Aspirin (Aspirin) 324 mg PO ONETIME ONE Stop: 08/23/20 17:26 Last Admin: 08/23/20 17:51 Dose: 324 mg Documented by: Dexamethasone (Dexamethasone) 6 mg PO ONETIME ONE Stop: 08/23/20 16:06 Last Admin: 08/23/20 16:24 Dose: 6 mg Documented by: Dexamethasone (Dexamethasone) 6 mg PO DAILY [facility] Last Admin: 08/23/20 21:18 Dose: Not Given Documented by: Enoxaparin Sodium (Lovenox) 115 mg 1 mg/kg (115 mg) SUBCUT ONETIME ONE Stop: 08/23/20 17:44 Last Admin: 08/23/20 17:53 Dose: 115 mg Documented by: Enoxaparin Sodium (Lovenox) 40 mg SUBCUT Q12H [facility] Last Admin: 08/23/20 21:18 Dose: Not Given Documented by: Magnesium Sulfate 2 gm/ Premix 50 mls @ 50 mls/hr IV ONETIME ONE Stop: 08/23/20 18:26 Last Admin: 08/23/20 17:54 Dose: 50 mls/hr Documented by: Remdesivir 200 mg/ Sodium (Chloride) 250 mls @ 250 mls/hr IV ONETIME ONE Stop: 08/23/20 17:28 Last Admin: 08/23/20 18:47 Dose: 250 mls/hr Documented by: Remdesivir 200 mg/ Sodium (Chloride) 250 mls @ 250 mls/hr IV ONETIME ONE Stop: 08/23/20 20:18 Last Admin: 08/23/20 21:18 Dose: Not Given Documented by: Remdesivir 100 mg/ Sodium (Chloride) 100 mls @ 100 mls/hr IV Q24H [facility] Stop: 08/27/20 17:59 Iopamidol (Isovue Multipack-370 (76%)) 100 ml IVPUSH ONETIME STA Stop: 08/23/20 20:47 Last Admin: 08/23/20 20:49 Dose: 100 ml Documented by: Potassium Chloride (Potassium Chloride) 60 meq PO ONETIME ONE Stop: 08/23/20 17:28 Last Admin: 08/23/20 17:51 Dose: 60 meq Documented by: Potassium Chloride (Potassium Chloride) 40 meq PO ONETIME ONE Stop: 08/23/20 20:50 Potassium Chloride (Klor-Con M20) 40 meq PO ONETIME ONE Stop: 08/25/20 07:56 Last Admin: 08/25/20 09:52 Dose: 40 meq Documented by: Sodium Chloride (Saline Flush) 10 ml FLUSH ASDIRECTED PRN PRN Reason: Keep Vein Open Last Admin: 08/23/20 16:24 Dose: 10 ml Documented by: Sodium Chloride (Saline Flush) 2.5 ml FLUSH ASDIRECTED PRN PRN Reason: Keep Vein Open Last Admin: 08/23/20 16:24 Dose: 2.5 ml Documented by: - Exam Quality Assessment: Supplemental Oxygen (6 L high flow), DVT Prophylaxis (Lovenox) General: Alert, Oriented, Cooperative, No Acute Distress Lungs: Normal Respiratory Effort, Crackles (Very fine crackles bilaterally), Other (Productive cough while I was in the room. With green sputum noted.). No: Wheezing GI/Abdominal Exam: Normal Bowel Sounds, Soft, Non-Tender Back Exam: Normal Inspection, Full Range of Motion Extremities: Normal Inspection, Normal Range of Motion, Non-Tender, No Pedal Edema Neurological: No New Focal Deficit Psy/Mental Status: Alert, Normal Affect, Normal Mood Sepsis Event Note - Evaluation Sepsis Screening Result: No Definite Risk - Focused Exam Vital Signs: Vital Signs Temp Pulse Resp BP Pulse Ox Pulse Ox 08/27/20 04:27 92 L 08/27/20 03:24 96.0 F L 80 18 109/79 92 L 08/27/20 00:17 96.3 F L 75 20 116/80 92 L 08/26/20 22:14 91 L 08/26/20 21:08 97.2 F 70 20 156/99 H 91 L - Problem List & Annotations (1) Acute on chronic respiratory failure with hypoxia SNOMED Code(s): 26083903, 415613974 Code(s): J96.21 - ACUTE AND CHRONIC RESPIRATORY FAILURE WITH HYPOXIA Status: Acute Current Visit: Yes (2) Bilateral pneumonia SNOMED Code(s): 023180953 Code(s): J18.9 - PNEUMONIA, UNSPECIFIED ORGANISM Status: Acute Current Visit: Yes (3) COVID-19 SNOMED Code(s): 996785585 Code(s): U07.1 - COVID-19 Status: Acute Current Visit: Yes (4) Elevated troponin SNOMED Code(s): 509505156, 492578895, 313036559 Code(s): R77.8 - OTHER SPECIFIED ABNORMALITIES OF PLASMA PROTEINS Status: Acute Current Visit: Yes - Problem List Review Problem List Initiated/Reviewed/Updated: Yes - My Orders Last 24 Hours: My Active Orders 08/26/20 14:00 Nystatin [Nystop] See Dose Instructions TOP TID - Plan Plan:: 40-year-old female admitted for Hypoxic respiratory failure secondary to COVID- 19 1. Acute hypoxic respiratory failure and COVID-19 pneumonia -Continue oxygen therapy to keep sats greater than 92% wean as possible. - oxygen needs continue to slowly improve. Now needing 6 L high flow nasal cannula. Proning helps oxygenation. - Continue remdesivir 100 mg IV daily today is final dose. - Transaminitis stable - continue dexamethasone 6 mg daily total of 10 days, today is day 5 of 10 - Continue Lovenox augmented dosing 40 twice daily - Encourage incentive spirometry and proning, will add Acapella - Combivent every 4 hours - Guaifenesin every 4 hours as needed for cough -Continue Levaquin 750 IV daily 2. Transaminitis - stable VTE prophylaxis: Lovenox twice daily CODE STATUS: Full code Dispo: 2 to 3 days pending improvement
[2020-08-27] MEDS: Dexamethasone 4 MG Tab PO SCH (08:11)
[2020-08-27] MEDS: Levothyroxine 100 MCG Tab PO SCH (08:11)
[2020-08-27] MEDS: Sertraline 100 MG Tab PO SCH (08:11)
[2020-08-27] MEDS: Enoxaparin 40 MG/0.4 ML Syringe SUBCUT SCH ×2 (08:12→21:19)
[2020-08-27] MEDS: Levofloxacin/Dextrose 5%-Water 750 MG in Premix Bag 1 BAG IV SCH (10:42)
[2020-08-27] MEDS: REMDESIVIR 100 MG in Sodium Chloride 0.9% 100 ML IV SCH (16:37)
[2020-08-27] MEDS: traZODone 50 MG Tab PO SCH (21:19)
[2020-08-28] MEDS: Albuterol/Ipratropium 4 GM Inhalation Spray INH SCH ×4 (01:04→14:01)
[2020-08-28] MEDS: Nystatin Topical Powder 15 GM Bottle TOP SCH (06:25)
[2020-08-28] MEDS: Levothyroxine 100 MCG Tab PO SCH (06:31)
[2020-08-28 07:01] LABS: BLOOD UREA NITROGEN,BUN 13 mg/dL (7.0-18.0); CARBON DIOXIDE,CO2 29.6 mmol/L (21.0-32.0); CHLORIDE,CL 106 mmol/L (98-107); GLUCOSE RANDOM 92 mg/dL (74-106); POTASSIUM,K 3.6 mmol/L (3.5-5.1); SODIUM,NA 143 mmol/L (136-145)
[2020-08-28] MEDS: Dexamethasone 4 MG Tab PO SCH (09:38)
[2020-08-28] MEDS: Enoxaparin 40 MG/0.4 ML Syringe SUBCUT SCH (09:38)
[2020-08-28] MEDS: Levofloxacin/Dextrose 5%-Water 750 MG in Premix Bag 1 BAG IV SCH (11:24)
[2020-08-28] MEDS: Sertraline 100 MG Tab PO SCH (11:25)
--- NOTE | 2020-08-28 13:09 | PCM.DCSUM1 ---
Discharge Summary - Discharge Data Discharge Date: 08/28/20 Discharge Disposition: Home, Self-Care 01 Condition: Good - Referral to Home Health Primary Care Physician: Key Alonso MD - Patient Summary/Data Hospital Course: Patient is a 40-year-old female who was admitted for COVID-19. She presented with shortness of breath and had tested psotive for COVID on August 13. She was found to be hypoxic with O2 sats of 82% on Room air. CT aniog ruled ruled out PE but showed bilateral ground glass opacities consistent with COVID. She was treatedwith Dexamethasone, Remdisivir, and Levaquin for five days. Patient reports dyspnea has resolved but is satting 88% on room air. She was discharged home with home oxygen. She was also discharged with five more days of dexamethasone. She is to follow up with [facility]. - Patient Instructions Diet: Usual Diet as Tolerated Activity: As Tolerated Notify Provider of: Fever, Increased Pain, Nausea and/or Vomiting - Discharge Plan Prescriptions/Med Rec: Albuterol/Ipratropium [Combivent Respimat] 0 gm INH Q4H PRN #1 inhaler PRN Reason: wheezing dexAMETHasone [Decadron] 6 mg PO DAILY #5 tablet Home Medications: Home Meds Levothyroxine Sodium [Synthroid] 200 mcg PO DAILY 08/23/20 [History] Sertraline [Zoloft] 150 mg PO DAILY 08/23/20 [History] traZODone HCl [Trazodone HCl] 50 mg PO BEDTIME 08/23/20 [History] Albuterol/Ipratropium [Combivent Respimat] 0 gm INH Q4H PRN #1 inhaler 08/28/20 [Rx] dexAMETHasone [Decadron] 6 mg PO DAILY #5 tablet 08/28/20 [Rx] Oxygen Therapy Mode: Nasal Cannula Oxygen Flow Rate (L/min): 3 Patient Handouts: COVID-19 Frequently Asked Questions, COVID-19, COVID-19: How to Protect Yourself and Others - [facility] Referrals: León Alonso MD [Physician] - 08/30/20 8:30 am - Discharge Summary/Plan Comment DC Time >30 min.: No - Patient Data Vitals - Most Recent: Last Vital Signs Temp 36.2 C 08/28/20 11:57 Pulse 82 08/28/20 11:57 Resp 14 08/28/20 11:57 BP 102/73 08/28/20 11:57 Pulse Ox 94 L 08/28/20 11:57 Weight - Most Recent: 114.759 kg I&O - Last 24 hours: Intake & Output 08/27/20 08/28/20 08/28/20 22:59 06:59 14:59 Intake Total 1150 300 163 Output Total 600 800 Balance 550 -500 163 Lab Results - Last 24 hrs: Laboratory Results - last 24 hr 08/28/20 08/28/20 Range/Units 05:34 05:34 WBC 6.28 (4.0-11.0) K/uL RBC 4.47 (4.30-5.90) M/uL Hgb 13.3 (12.0-16.0) g/dL Hct 41.2 (36.0-46.0) % MCV 92.2 (80.0-98.0) fL MCH 29.8 (27.0-32.0) pg MCHC 32.3 (31.0-37.0) g/dL RDW Std Deviation 42.8 (28.0-62.0) fl RDW Coeff of Michelle 13 (11.0-15.0) % Plt Count 320 (150-400) K/uL MPV 9.10 (7.40-12.00) fL Neut % (Auto) 64.9 (48.0-80.0) % Lymph % (Auto) 24.5 (16.0-40.0) % Pope % (Auto) 8.4 (0.0-15.0) % Eos % (Auto) 2.2 (0.0-7.0) % Baso % (Auto) 0.0 (0.0-1.5) % Neut # (Auto) 4.1 (1.4-5.7) K/uL Lymph # (Auto) 1.5 (0.6-2.4) K/uL Pope # (Auto) 0.5 (0.0-0.8) K/uL Eos # (Auto) 0.1 (0.0-0.7) K/uL Baso # (Auto) 0.0 (0.0-0.1) K/uL Nucleated RBC % 0.0 /100WBC Nucleated RBCs # 0 K/uL Sodium 143 (136-145) mmol/L Potassium 3.6 (3.5-5.1) mmol/L Chloride 106 (98-107) mmol/L Carbon Dioxide 29.6 (21.0-32.0) mmol/L BUN 13 (7.0-18.0) mg/dL Creatinine 0.7 (0.6-1.0) mg/dL Est Cr Clr Drug Dosing 91.33 mL/min Estimated GFR (MDRD) > 60.0 ml/min Glucose 92 (74-106) mg/dL Calcium 8.7 (8.5-10.1) mg/dL Total Bilirubin 0.5 (0.2-1.0) mg/dL AST 101 H (15-37) IU/L ALT 208 H (14-63) IU/L Alkaline Phosphatase 111 (46-116) U/L Total Protein 6.2 L (6.4-8.2) g/dL Albumin 2.4 L (3.4-5.0) g/dL Globulin 3.8 (2.6-4.0) g/dL Albumin/Globulin Ratio 0.6 L (0.9-1.6) [facility]MA Results - Last 24 hrs: Microbiology 08/23/20 16:25 Aerobic Blood Culture - Preliminary Blood - Venous - Lab Draw NO GROWTH AFTER 4 DAYS Anaerobic Blood Culture - Preliminary NO GROWTH AFTER 4 DAYS 08/23/20 16:20 Aerobic Blood Culture - Preliminary Blood - Venous NO GROWTH AFTER 4 DAYS Anaerobic Blood Culture - Preliminary NO GROWTH AFTER 4 DAYS Med Orders - Current: Current Medications Acetaminophen (Tylenol) 650 mg PO Q4H PRN PRN Reason: Pain Albuterol/Ipratropium (Combivent Respimat) 0 gm INH Q4H [facility] Last Admin: 08/28/20 09:38 Dose: 1 puff Documented by: Dexamethasone (Dexamethasone) 6 mg PO DAILY [facility] Stop: 09/02/20 09:01 Last Admin: 08/28/20 09:38 Dose: 6 mg Documented by: Enoxaparin Sodium (Lovenox) 40 mg SUBCUT Q12H [facility] Last Admin: 08/28/20 09:38 Dose: 40 mg Documented by: Guaifenesin/Dextromethorphan (Robitussin Dm) 10 ml PO Q4H PRN PRN Reason: Cough Last Admin: 08/24/20 21:27 Dose: 10 ml Documented by: Levofloxacin/Dextrose 750 mg/ (Premix) 150 mls @ 100 mls/hr IV Q24H [facility] Last Admin: 08/28/20 11:24 Dose: 100 mls/hr Documented by: Levothyroxine Sodium (Synthroid) 200 mcg PO ACBREAKFAST [facility] Last Admin: 08/28/20 06:31 Dose: 200 mcg Documented by: Nystatin (Nystop) 0 gm TOP TID [facility] Last Admin: 08/28/20 06:25 Dose: 1 applic Documented by: Ondansetron HCl (Zofran) 4 mg IVPUSH Q4H PRN PRN Reason: Nausea Sertraline HCl (Zoloft) 150 mg PO DAILY [facility] Last Admin: 08/28/20 11:25 Dose: 150 mg Documented by: Sodium Chloride ([place] Nasal [place]) 0 ml KATHRIN Q2H PRN PRN Reason: nasal congestion Last Admin: 08/24/20 11:21 Dose: 1 spray Documented by: Sodium Chloride (Saline Flush) 2.5 ml FLUSH ASDIRECTED PRN PRN Reason: Keep Vein Open Trazodone HCl (Trazodone) 50 mg PO BEDTIME [facility] Last Admin: 08/27/20 21:19 Dose: 50 mg Documented by: Discontinued Medications Acetaminophen (Tylenol) 650 mg PO Q4H PRN PRN Reason: Pain (Mild 1-3)/fever Albuterol/Ipratropium (Combivent Respimat) 0 gm INH Q4H [facility] Albuterol/Ipratropium (Combivent Respimat) 0 gm INH Q4HR [facility] Last Admin: 08/24/20 17:02 Dose: 1 inhalation Documented by: Aspirin (Aspirin) 324 mg PO ONETIME ONE Stop: 08/23/20 17:26 Last Admin: 08/23/20 17:51 Dose: 324 mg Documented by: Dexamethasone (Dexamethasone) 6 mg PO ONETIME ONE Stop: 08/23/20 16:06 Last Admin: 08/23/20 16:24 Dose: 6 mg Documented by: Dexamethasone (Dexamethasone) 6 mg PO DAILY [facility] Last Admin: 08/23/20 21:18 Dose: Not Given Documented by: Enoxaparin Sodium (Lovenox) 115 mg 1 mg/kg (115 mg) SUBCUT ONETIME ONE Stop: 08/23/20 17:44 Last Admin: 08/23/20 17:53 Dose: 115 mg Documented by: Enoxaparin Sodium (Lovenox) 40 mg SUBCUT Q12H [facility] Last Admin: 08/23/20 21:18 Dose: Not Given Documented by: Magnesium Sulfate 2 gm/ Premix 50 mls @ 50 mls/hr IV ONETIME ONE Stop: 08/23/20 18:26 Last Admin: 08/23/20 17:54 Dose: 50 mls/hr Documented by: Remdesivir 200 mg/ Sodium (Chloride) 250 mls @ 250 mls/hr IV ONETIME ONE Stop: 08/23/20 17:28 Last Admin: 08/23/20 18:47 Dose: 250 mls/hr Documented by: Remdesivir 200 mg/ Sodium (Chloride) 250 mls @ 250 mls/hr IV ONETIME ONE Stop: 08/23/20 20:18 Last Admin: 08/23/20 21:18 Dose: Not Given Documented by: Remdesivir 100 mg/ Sodium (Chloride) 100 mls @ 100 mls/hr IV Q24H [facility] Stop: 08/27/20 17:59 Remdesivir 100 mg/ Sodium (Chloride) 100 mls @ 100 mls/hr IV Q24H [facility] Stop: 08/27/20 17:59 Last Admin: 08/27/20 16:37 Dose: 100 mls/hr Documented by: Iopamidol (Isovue Multipack-370 (76%)) 100 ml IVPUSH ONETIME STA Stop: 08/23/20 20:47 Last Admin: 08/23/20 20:49 Dose: 100 ml Documented by: Potassium Chloride (Potassium Chloride) 60 meq PO ONETIME ONE Stop: 08/23/20 17:28 Last Admin: 08/23/20 17:51 Dose: 60 meq Documented by: Potassium Chloride (Potassium Chloride) 40 meq PO ONETIME ONE Stop: 08/23/20 20:50 Potassium Chloride (Klor-Con M20) 40 meq PO ONETIME ONE Stop: 08/25/20 07:56 Last Admin: 08/25/20 09:52 Dose: 40 meq Documented by: Sodium Chloride (Saline Flush) 10 ml FLUSH ASDIRECTED PRN PRN Reason: Keep Vein Open Last Admin: 08/23/20 16:24 Dose: 10 ml Documented by: Sodium Chloride (Saline Flush) 2.5 ml FLUSH ASDIRECTED PRN PRN Reason: Keep Vein Open Last Admin: 08/23/20 16:24 Dose: 2.5 ml Documented by:
== END 2020-08-28 15:45 | disposition home or self-care (01) | DRG 137 ==
LOC: MW.ED 15:45 → MW.MS 20:13
PROVIDERS: ADMIT Student in an Organized Health Care Education/Training Program; ATTEND Student in an Organized Health Care Education/Training Program
PROC: XW033E5 Introduction of Remdesivir Anti-infective into Peripheral Vein, Percutaneous Approach, New Technology Group 5 (ICD-10-PCS; principal; 2020-08-23)
PROC: 5A0945A Assistance with Respiratory Ventilation, 24-96 Consecutive Hours, High Flow/Velocity Cannula (ICD-10-PCS; 2020-08-24)
DX: U07.1 COVID-19 (principal); J12.89 Other viral pneumonia; J96.21 Acute and chronic respiratory failure with hypoxia; E03.9 Hypothyroidism, unspecified; F32.9 Major depressive disorder, single episode, unspecified; E87.6 Hypokalemia; R74.01 Elevation of levels of liver transaminase levels; R77.8 Other specified abnormalities of plasma proteins; Z79.890 Hormone replacement therapy; Z79.899 Other long term (current) drug therapy
CPT/HCPCS: 36415; 71045; 71045-26; 71275; 71275-26; 76705; 76705-26; 80053; 81001; 83605; 83735; 84100; 84484; 85025; 85610; 87040; 93005; 93010; 94640; 94664; 94667; 96365; 96367; 96372; 99221; 99232; 99238; 99285; 99285-25; A9270-GY; J1650; J1956; J3475; J7050; J8540; Q9967